=== PATIENT | female | born 1950 | race Caucasian/White ===

== ENCOUNTER 2024-02-09 12:32 | Inpatient (IN) ==
--- NOTE | 2024-02-09 13:21 | ED Physician Documentation ---
History of Present Illness Stated complaint Stated Complaint: Head/Neck PX Chief complaint Chief Complaint: Neuro Additonal information Additional information: 74-year-old female with history of high cholesterol, depression, appendectomy presents with altered mental status, head and neck pain. Per chart review, she was diagnosed with COVID in January, starting Paxlovid on January 30. She presented to the ER on January 30 with an episode of altered mental status. She had CT head, CT head and neck, then return to baseline. It was felt she might be having a response to COVID, as she had a similar prior episode of confusion with COVID in the past per note. She was discharged in good condition. She and her family bedside state that her COVID symptoms resolved, then in the last 3 days, she developed mild intermittent confusion with progressive neck pain. Pain is worse with flexion. 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 She denies photophobia, fevers or chills, vomiting, focal numbness or weakness, visual or hearing changes, chest or back or abdominal flank pain, shortness of breath, urinary symptoms, rash, trauma, lightheadedness or syncope, or other changes. She is not anticoagulated. She denies prior low back surgeries, with family bedside corroborating. She does note however history of difficult lumbar punctures in the past, likely requiring IR guidance per her history in [place]. She took 2 doses of acyclovir yseterday and 1 this morning at home; she does not regularly take this but states she was told to in past if she developed symptoms like her current neck discomfort. Review of Systems ROS Constitutional: no fever, no chills Eyes: no visual disturbance, no discharge Ears, Nose, Mouth, Throat: no rhinorrhea, no sore throat Cardiovascular: no chest pain, no palpitations Respiratory: no cough, no shortness of breath Gastrointestinal: no abdominal pain, no vomiting, no diarrhea Genitourinary: no dysuria, no hematuria Musculoskeletal: no back pain, no neck stiffness Skin: no rash, no wound Neurological: no focal weakness, no focal numbness Meds/Allgy Home Medications Ambulatory Orders Medication Instructions Recorded Confirmed albuterol sulfate 90 mcg/actuation 1 - 2 puff IH Q4H PRN Cough ##1 07/06/15 02/09/24 aerosol inhaler (Proventil HFA) fluticasone furoate 200 1 inh inhalation DAILY 07/06/15 02/09/24 mcg-vilanterol 25 mcg/dose inhalation powder (Breo Ellipta) atorvastatin 80 mg tablet 80 mg PO DAILY 02/09/24 02/09/24 duloxetine 60 mg capsule,delayed 60 mg PO DAILY 02/09/24 02/09/24 release gabapentin 300 mg capsule 300 mg PO TID 02/09/24 02/09/24 montelukast 10 mg tablet 10 mg PO QPM 02/09/24 02/09/24 quetiapine 100 mg tablet 150 mg PO DAILY 02/09/24 02/09/24 Allergies Allergies Allergy/AdvReac Type Severity Reaction Status Date / Time baclofen Allergy Intermediate Unknown Verified 02/09/24 12:41 [facility] Medical History Medical History (Updated 02/09/24 @ 17:44 by FAUSTO Hartley) History of asthma Rheumatoid arthritis Hyperlipemia Surgical History Surgical History (Updated 02/09/24 @ 12:50 by Scooby Finley RN) History of carpal tunnel release Family History Family History (Updated 02/09/24 @ 18:02 by FAUSTO Hartley) Mother Leukemia Father Leukemia Social History Social History (Updated 02/09/24 @ 12:50 by Scooby Finley RN) Smoking Status: Never smoker Second hand tobacco smoke exposure: No Do you dip or chew tobacco?: No Do you vape?: No Living arrangement: At home Living Condition: With family and Other (Visiting here from [place] for an indefinite duration.) Relationship: Do you feel safe in your home environment?: Yes Suffered physical, verbal, emotional, or financial abuse?: No History of Abuse: No ETOH Use: None Substance Use: denies use POLST Patient has POLST: No Exam Exam Const: no acute distress, non toxic appearing; calm, conversant, pleasant though mildly confused Eyes: PERRLA, EOMI, no photophobia ENT: mucous membranes moist Neck: +pain and stiffness with flexion; mildly tender along C-spine; no other tenderness; no lesions or thrills Resp: no respiratory distress, clear to auscultation bilaterally Card: regular rate and rhythm, no murmurs Abd: non tender diffusely, no rigidity or rebound or guarding Back: no T or L spine tenderness, no CVA tenderness bilaterally Extrem: no deformities, no swelling bilateral lower extremities, 2+ distal pulses all extremities Neuro: ANOx3/4. e merchant 2-12 intact. No rotatory or vertical nystagmus. Normal tone all extremities. Sensation intact to light touch all extremities. No ankle clonus bilaterally. 5/5 motor strength all extremities. Normal coordination. No dysarthria. No neglect. Grossly normal cognition. Skin: no rash, warm and dry Results Vitals Vitals: Vital Signs - 24 hr 02/09/24 12:43 02/09/24 13:52 02/09/24 14:33 Temperature 37.2 C Temperature Source Oral Pulse Rate 123 H 106 H 97 H Respiratory Rate 18 16 18 Blood Pressure 118/58 L 142/66 H 156/73 H O2 Saturation 93 93 93 O2 Source Room air Room air Room air Pain Intensity 8 7 6 02/09/24 15:10 02/09/24 15:52 02/09/24 15:53 Temperature Temperature Source Pulse Rate 96 H Respiratory Rate 17 Blood Pressure 169/89 H O2 Saturation 94 O2 Source Room air Pain Intensity 8 8 8 02/09/24 16:57 02/09/24 16:58 02/09/24 17:07 Temperature Temperature Source Pulse Rate 90 91 H Respiratory Rate 18 18 Blood Pressure 177/93 H O2 Saturation 96 96 O2 Source Room air Room air Room air Pain Intensity 4 3 3 Oxygen O2 Source Room air Labs Labs: Microbiology 02/09/24 14:15 CSF Culture - Preliminary Cerebral Spinal Fluid Laboratory Tests 02/09/24 02/09/24 02/09/24 13:28 14:15 17:00 WBC 10.5 RBC 4.05 L Hgb 12.5 Hct 39.0 MCV 96.3 MCH 30.9 MCHC 32.1 RDW 12.2 Plt Count 228 MPV 10.1 Neut # (Auto) 6.9 H Lymph # (Auto) 2.1 [place] # (Auto) 1.2 H Eos # (Auto) 0.3 Baso # (Auto) 0.0 Absolute Nucleated RBC 0.00 Nucleated RBC % 0.0 PT 11.4 INR 1.0 Sodium 136 Potassium 4.2 Chloride 101 Carbon Dioxide 28 Anion Gap 7.0 BUN 24 H Creatinine 1.4 H Estimated GFR (MDRD) 37 L Glucose 159 H Calcium 10.2 Total Bilirubin 0.9 AST 28 ALT 32 Alkaline Phosphatase 50 Total Protein 7.4 Albumin 4.5 Globulin 2.9 Albumin/Globulin Ratio 1.6 Urine Color YELLOW Urine Clarity CLEAR Urine pH 5.5 Ur Specific [place] 1.015 Urine Protein NEGATIVE Urine Glucose (UA) NEGATIVE Urine Ketones NEGATIVE Urine Occult Blood NEGATIVE Urine Nitrite NEGATIVE Urine Bilirubin NEGATIVE Urine Urobilinogen 0.2 (NORMAL) Ur Leukocyte Esterase NEGATIVE Urine RBC None Seen Urine WBC 0-3 Ur Squamous Epith Cells FEW Squamous Urine Bacteria None Seen Urine Culture Comments NOT INDICATED CSF Color COLORLESS CSF Clarity CLEAR Xanthrochromic ABSENT CSF WBC 1088 H* CSF RBC 3 H CSF Cell Count Tube # CSF TUBE# 3 CSF Neutrophils 2 CSF Lymphocytes 87 H CSF Monocytes 11 L CSF Glucose 64 CSF Total Protein 163 H Salicylates < 1.5 Urine Opiates Screen POSITIVE H Ur Buprenorphine Scrn NEGATIVE Ur Oxycodone Screen POSITIVE H Urine Methadone Screen NEGATIVE Acetaminophen 19.5 Ur Barbiturates Screen NEGATIVE Ur Tricyclics Screen POSITIVE H Ur Phencyclidine Scrn NEGATIVE Ur Amphetamine Screen NEGATIVE U Methamphetamines Scrn NEGATIVE U Benzodiazepines Scrn NEGATIVE Urine Cocaine Screen NEGATIVE U Cannabinoids Screen NEGATIVE Ur Drug Screen Comment CUTOFF CONC BELOW: Ethyl Alcohol < 10.0 PD Medical Decision Making ED course ED course: This patient presents with neck pain in the setting of recent COVID and 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 She is neurovascularly intact, though mildly confused, currently afebrile. In this setting, I have considered broad differential including but not limited to meningitis, encephalitis, including from HSV, torticollis, sprain, strain, tension headache, migraine, vascular dissection, electrolyte derangements, among others. I am pursuing broad altered mental status workup with EKG, labs, CT head, chest x-ray, CTA head and neck, then anticipate attempt at lumbar puncture. I have consented family at bedside for LP. Note patient on isolation. Staff aware. Note also patient with no focal neurologic deficits and is afebrile, not septic appearing. I am holding antibiotics/antivirals pending LP given stability to optimize CSF results. Labs: CBC reassuring, no leukocytosis or anemia or thrombocyoptenia; CMP with possible HUMBERTO, with Cr 1.4, previously 1.0 in January; BUN mildly elevated. Fluids ordered. LFTs WNL. ASA, APAP, ethanol negative. INR WNL. Radiology: I agree with radiology reads of imaging on my independent review of i maging. CXR: "FINDINGS: Surgical changes and devices: None. Lungs and pleura: No pleural effusions or pneumothorax. Lungs are clear. Mediastinum: Mediastinal contours appear normal. Heart size is enlarged. Bones and chest wall: No suspicious bony lesions. Overlying soft tissues appear unremarkable. IMPRESSION: No acute cardiopulmonary process. Reviewed by: Sky Dash MD on 02/09/2024 1:54 PM PDT" CT: "FINDINGS: Image quality: Excellent. CSF spaces: Basal cisterns are patent. No extra-axial fluid collections. Ventricles are normal in size and shape. Brain: No midline shift. No intracranial masses or hemorrhage. Huizar-white matter interface is normal. Age-appropriate brain parenchymal volume loss and chronic small vessel ischemic change can be seen. Skull and face: Calvarium and visualized facial bones are intact, without suspicious lesions. Hyperostosis frontalis is incidentally noted, which is not frankly abnormal for a female patient of this age. Sinuses: Visualized sinuses and mastoids are clear. IMPRESSION: No acute intracranial pathology. No intracranial hemorrhage is seen. If there is strong clinical concern for a stroke, please consider a dedicated brain MRI for further evaluation (assuming that there is no contraindication to MRI). Reviewed by: Naresh Marquis MD on 02/09/2024 12:56 PM AKDT" Note added HIV given the potential for recurring HSV meningitis, though no clear HIV risk factors, no clear immunosuppression. This is a send out that will need follow up. - LP: LP perforemd as below. CSF glucose, protein, gram stain, culture, HSV ordered. Procedure Note: Lumbar Puncture Patient consented via PARQ. Timeout performed. The patient was positioned in the left lateral decubitus position. Landmarks were identified. Sterile technique used. The area was prepped and draped in the usual sterile fashion. Anesthesia was obtained with 3 ml of 1% lidocaine withoue epi. Chlorhexidine applied. An 18g 3.5" spinal needle was inserted at the L4-5 level. Return was clear fluid without difficulty. Fluid sent to the laboratory. A dressing was placed over the site. - CSF results: I received a call that there is a substantial elevated white blood cell count in CSF, above 1000. Patient stable. I am initiating IV acyclovir 800mg q8hrs; note patient took PO acyclovir at home as previously discussed. Glucose WNL. Protein elevated to 163. WBC retruned at 1088 (lymphocytic predominance), with minimal RBCs at 3. No clear organisms on stain, arguing against bacterial etiology; culture sent. CTA: "FINDINGS: Image quality: Diagnostic. HEAD CT: No significant change from same day head CT. HEAD CT ANGIOGRAPHY: Anterior circulation: Intracranial internal carotid arteries are normal in size and flow. The flow within the paired anterior cerebral arteries is normal and symmetric. The flow within the middle cerebral arteries is normal and symmetric. The anterior communicating artery is seen. No aneurysms are seen. Posterior circulation: Visualized portions of the vertebral arteries demonstrate normal caliber, and join to form a normal appearing basilar artery. Flow within the posterior cerebral arteries is normal and symmetric. No aneurysms are seen. NECK CT ANGIOGRAPHY: Carotid system: The great vessels demonstrate a conventional anatomy as they arise from the aortic arch. The origins of the common carotid arteries appear patent. The common carotid arteries demonstrate normal caliber and courses. The bifurcation regions are both widely patent. The internal carotid arteries demonstrate normal calibers and courses. Posterior circulation: The origins of the vertebral arteries both appear widely patent. The more superior extracranial portions of both vertebral arteries also demonstrate normal courses and calibers. They join to form a normal appearing basilar artery. Soft tissues: Visualized neck soft tissues demonstrate no suspicious abnormalities. Bones: No suspicious bony lesions. Visualized cervical spine appears normally aligned. IMPRESSION: No significant intracranial arterial abnormality is seen. No significant abnormality is seen within the arteries of the neck. The estimate of stenosis included in the report of the imaging study was calculated using the NASCET method Reviewed by: Sky Dash MD on 02/09/2024 3:16 PM PDT" EKG NSR without acute ischemia or immediately concerning interval prolongation Pharmacy adjusting acyclovir dosing based on weight and renal function. I spoke with Oral at roughly 1525. Patient stable. Ordering oxycodone, tylenol for head and neck pain, along with bcx x2. Hospitalist consult: I spoke with Dr. Paige at 1640; she reviewed case with me and kindly accepts for admission. Note UA pending at this time. Patient and family aware of plan. Patient has remained stable, neurovascularly intact. Discharge Plan Discharge Patient Disposition: [facility] DC/Xfer Condition: Stable Clinical Impression: Meningitis
[2024-02-09 13:35] LABS: BASOPHILS % (AUTO) 0.4 %; EOSINOPHILS # (AUTO) 0.3 10^3/uL (0.0-0.7); EOSINOPHILS % (AUTO) 2.7 %; HGB - HEMOGLOBIN 12.5 g/dL (12.0-16.0); LYMPHOCYTES # (AUTO) 2.1 10^3/uL (1.5-3.5); LYMPHOCYTES % (AUTO) 19.8 %; MEAN CORPUSCULAR HEMOGLOBIN 30.9 pg (27.0-31.0); MEAN CORPUSCULAR HGB CONC 32.1 g/dL (32.0-36.0); MEAN CORPUSCULAR VOLUME 96.3 fL (81.0-99.0); MEAN PLATELET VOLUME 10.1 fL (7.9-10.8); MONOCYTES # (AUTO) 1.2 10^3/uL (0.0-1.0); MONOCYTES % (AUTO) 11.1 %; NEUTROPHILS # (AUTO) 6.9 10^3/uL (1.5-6.6); NEUTROPHILS % (AUTO) 65.5 %; PLT - PLATELET COUNT 228 10^3/uL (130-450); RED BLOOD COUNT 4.05 10^6/uL (4.20-5.40); RED CELL DISTRIBUTION WIDTH 12.2 % (12.0-15.0); WHITE BLOOD COUNT 10.5 x10^3/uL (4.8-10.8)
[2024-02-09 13:44] LABS: PT - PROTHROMBIN TIME 11.4 secs (9.9-12.6)
[2024-02-09 13:49] LABS: ACETAMINOPHEN 19.5 ug/mL; ALBUMIN 4.5 g/dL (3.2-5.5); ALBUMIN/GLOBULIN RATIO 1.6 (1.0-2.2); ALKALINE PHOSPHATASE 50 IU/L (42-121); ALT ALANINE AMINOTRANSFERASE 32 IU/L (10-60); AST ASPARTATE AMINOTRANSFERASE 28 IU/L (10-42); BILIRUBIN,TOTAL 0.9 mg/dL (0.2-1.0); BUN - BLOOD UREA NITROGEN 24 mg/dL (6-20); CALCIUM 10.2 mg/dL (8.5-10.3); CARBON DIOXIDE - CO2 28 mmol/L (21-32); CHLORIDE 101 mmol/L (101-111); CREATININE 1.4 mg/dL (0.6-1.3); ETOH - ETHANOL < 10.0 mg/dL; GFR - MDRD 37 (>89); GLUCOSE 159 mg/dL (74-104); POTASSIUM 4.2 mmol/L (3.5-4.5); SODIUM 136 mmol/L (135-145); TOTAL PROTEIN 7.4 g/dL (6.4-8.9)
[2024-02-09 13:50] LABS: SALICYLATE < 1.5 mg/dL
[2024-02-09] MEDS: SODIUM CHLORIDE 0.9% 1,000 ML IV STA (13:51)
--- NOTE | 2024-02-09 13:55 | XRAY Report ---
PROCEDURE: XR Chest 1V INDICATIONS: AMS TECHNIQUE: One view of the chest was acquired. COMPARISON: 01/31/2024 FINDINGS: Surgical changes and devices: None. Lungs and pleura: No pleural effusions or pneumothorax. Lungs are clear. Mediastinum: Mediastinal contours appear normal. Heart size is enlarged. Bones and chest wall: No suspicious bony lesions. Overlying soft tissues appear unremarkable. IMPRESSION: No acute cardiopulmonary process. Reviewed by: Sky Dash MD on 02/09/2024 1:54 PM PDT Approved by: Sky Dash MD on 02/09/2024 1:54 PM PDT Station ID: [id number]
--- NOTE | 2024-02-09 13:57 | CT Report ---
PROCEDURE: CT Head WO INDICATIONS: AMS TECHNIQUE: Noncontrast 4.5 mm thick angled axial sections acquired from the foramen magnum to the vertex. For r adiation dose reduction, the following was used: automated exposure control, adjustment of mA and/or kV according to patient size. COMPARISON: 01/31/2024 FINDINGS: Image quality: Excellent. CSF spaces: Basal cisterns are patent. No extra-axial fluid collections. Ventricles are normal in size and shape. Brain: No midline shift. No intracranial masses or hemorrhage. Huizar-white matter interface is norm al. Age-appropriate brain parenchymal volume loss and chronic small vessel ischemic change can be se en. Skull and face: Calvarium and visualized facial bones are intact, without suspicious lesions. Hyper ostosis frontalis is incidentally noted, which is not frankly abnormal for a female patient of this a ge. Sinuses: Visualized sinuses and mastoids are clear. IMPRESSION: No acute intracranial pathology. No intracranial hemorrhage is seen. If there is strong clinical concern for a stroke, please consider a dedicated brain MRI for further e valuation (assuming that there is no contraindication to MRI). Reviewed by: Naresh Marquis MD on 02/09/2024 12:56 PM TENA Approved by: Naresh Marquis MD on 02/09/2024 12:56 PM TENA Station ID: [id number]
[2024-02-09] MEDS ORDERED: iohexoL-300 100 ML VIAL ONE (14:40)
[2024-02-09 14:50] LABS: TOTAL PROTEIN,CSF 163 mg/dL (15-60)
[2024-02-09 14:56] LABS: CSF - GLUCOSE 64 mg/dL (45-70)
[2024-02-09 15:09] LABS: CLARITY,CSF CLEAR (CLEAR); COLOR,CSF COLORLESS (COLORLESS); CSF TUBE # CSF TUBE# 3; CSF XANTHOCHROMIA ABSENT (ABSENT); RED BLOOD CELL,CSF 3 /mm^3 (0-1)
[2024-02-09 15:11] LABS: WHITE BLOOD CELL,CSF 1088 /mm^3 (0-5)
[2024-02-09 15:15] LABS: LYMPHOCYTES,CSF 87 % (40-80); MONOCYTES,CSF 11 % (15-45); NEUTROPHILS,CSF 2 % (0-6)
--- NOTE | 2024-02-09 15:18 | CT Report ---
PROCEDURE: CT Angio Head/Neck INDICATIONS: neck pain, confusion TECHNIQUE: After the administration of intravenous contrast, 1 mm thick sections acquired from the aortic arch t hrough the [place] of [place]. 3-dimensional bxzmnwe-aljylpnmd-fgnoyutggw (MIP) and/or volume renderin g reformats were acquired of the central intracranial vasculature and neck separately. For radiation dose reduction, the following was used: automated exposure control, adjustment of mA and/or kV acco rding to patient size. CONTRAST: Omni 300 80ml COMPARISON: Same day head CT. FINDINGS: Image quality: Diagnostic. HEAD CT: No significant change from same day head CT. HEAD CT ANGIOGRAPHY: Anterior circulation: Intracranial internal carotid arteries are normal in size and flow. The flow within the paired anterior cerebral arteries is normal and symmetric. The flow within the middle cer ebral arteries is normal and symmetric. The anterior communicating artery is seen. No aneurysms are seen. Posterior circulation: Visualized portions of the vertebral arteries demonstrate normal caliber, and join to form a normal appearing basilar artery. Flow within the posterior cerebral arteries is norm al and symmetric. No aneurysms are seen. NECK CT ANGIOGRAPHY: Carotid system: The great vessels demonstrate a conventional anatomy as they arise from the aortic a rch. The origins of the common carotid arteries appear patent. The common carotid arteries demonstr ate normal caliber and courses. The bifurcation regions are both widely patent. The internal caroti d arteries demonstrate normal calibers and courses. Posterior circulation: The origins of the vertebral arteries both appear widely patent. The more bowen perior extracranial portions of both vertebral arteries also demonstrate normal courses and calibers. They join to form a normal appearing basilar artery. Soft tissues: Visualized neck soft tissues demonstrate no suspicious abnormalities. Bones: No suspicious bony lesions. Visualized cervical spine appears normally aligned. IMPRESSION: No significant intracranial arterial abnormality is seen. No significant abnormality is seen within the arteries of the neck. The estimate of stenosis included in the report of the imaging study was calculated using the NASCET method Reviewed by: Sky Dash MD on 02/09/2024 3:16 PM PDT Approved by: Sky Dash MD on 02/09/2024 3:16 PM PDT Station ID: [id number]
[2024-02-09] MEDS: oxyCODONE 5 MG TABLET PO STA (15:52)
[2024-02-09] MEDS: ACYCLOVIR IV SCH (15:53)
[2024-02-09] MEDS: SODIUM CHLORIDE 0.9% IV SCH (15:53)
[2024-02-09] MEDS: ACETAMINOPHEN 500 MG TABLET PO STA (15:53)
[2024-02-09 17:13] LABS: BILIRUBIN,URINE NEGATIVE (NEGATIVE); GLUCOSE, URINE (UA) NEGATIVE (NEGATIVE); KETONES,URINE (UA) NEGATIVE (NEGATIVE); LEUKOCYTE ESTERASE, URINE NEGATIVE (NEGATIVE); NITRITE,URINE NEGATIVE (NEGATIVE); OCCULT BLOOD,URINE NEGATIVE (NEGATIVE); PH,URINE 5.5 PH (5.0-7.5); PROTEIN,URINE NEGATIVE (NEGATIVE); UROBILINOGEN,URINE 0.2 (NORMAL) E.U./dL (NORMAL)
[2024-02-09 17:17] LABS: CLARITY,URINE CLEAR (CLEAR)
[2024-02-09 17:27] LABS: BACTERIA,URINE None Seen /HPF (None Seen); RBC,URINE None Seen /HPF (0-5); SQUAMOUS EPITHELIAL CELL,UR FEW Squamous (<= Few); WBC,URINE 0-3 /HPF (0-5)
[2024-02-09 17:30] LABS: AMPHETAMINE SCREEN,URINE NEGATIVE (NEGATIVE); BENZODIAZEPINES SCREEN, URINE NEGATIVE (NEGATIVE); COCAINE SCREEN URINE NEGATIVE (NEGATIVE); METHAMPHETAMINES SCREEN, URINE NEGATIVE (NEGATIVE); OPIATE SCREEN, URINE POSITIVE (NEGATIVE); THC CANNABINOID SCREEN, URINE NEGATIVE (NEGATIVE); TRICYCLIC ANTIDEPRESSANT,URINE POSITIVE (NEGATIVE)
[2024-02-09 17:31] LABS: BARBITURATE SCREEN,UR NEGATIVE (NEGATIVE); BUPRENORPHINE SCREEN, URINE NEGATIVE (NEGATIVE); METHADONE SCREEN, URINE NEGATIVE (NEGATIVE); OXYCODONE SCREEN, URINE POSITIVE (NEGATIVE)
[2024-02-09] MEDS: iohexoL-300 100 ML VIAL IVP ONE (17:31)
[2024-02-09] MEDS ORDERED: ONDANSETRON 4 MG/2 ML VIAL IVP PRN (17:46)
[2024-02-09] MEDS ORDERED: ONDANSETRON ODT 4 MG TABLET TL PRN (17:46)
--- NOTE | 2024-02-09 17:46 | HISTORY & PHYSICAL EXAMINATION ---
Chief Complaint Chief Complaint Chief Complaint: headache History of Present Illness Admitted From Admitted From:: ED History Obtained From Records Reviewed: ED provider documentation History obtained from: Patient and sister at bedside. History of Present Illness HPI Comment/Other: 74-year-old female who presents to the emergency department complaining of a headache and mild confusion for 3 days duration. She has a history of asthma, rheumatoid arthritis and hyperlipidemia. She is also previously had viral meningitis. She had her COVID vaccination on January 26. Then became symptomatic with COVID on the and had a positive antigen test. She received Paxlovid treatment which she completed and then had a negative antigen test on February 04. She had been feeling better for several days but then began to have the above listed symptoms 3 days ago. She has also been feeling hot but is not had a fever. She has a past medical history of asthma rheumatoid arthritis and hyperlipidemia. She sees Starr Manrique at [facility]. She does not have any residual symptomatology from her COVID aside from exhaustion headache and neck ache. 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 She does have a history of shingles she has had the shingles vaccine she also had chickenpox as a child. Several weeks ago she had a bullous lesion on her left second toe which then crusted over and is in the process of healing currently. The toe also became red and swollen at the time of the lesion. It was not otherwise treated. Meds/Allgy Home Medications Ambulatory Orders Medication Instructions Recorded Confirmed albuterol sulfate 90 mcg/actuation 1 - 2 puff IH Q4H PRN Cough ##1 07/06/15 02/09/24 aerosol inhaler (Proventil HFA) fluticasone furoate 200 1 inh inhalation DAILY 07/06/15 02/09/24 mcg-vilanterol 25 mcg/dose inhalation powder (Breo Ellipta) atorvastatin 80 mg tablet 80 mg PO DAILY 02/09/24 02/09/24 duloxetine 60 mg capsule,delayed 60 mg PO DAILY 02/09/24 02/09/24 release gabapentin 300 mg capsule 300 mg PO TID 02/09/24 02/09/24 montelukast 10 mg tablet 10 mg PO QPM 02/09/24 02/09/24 quetiapine 100 mg tablet 150 mg PO DAILY 02/09/24 02/09/24 Allergies Allergies Allergy/AdvReac Type Severity Reaction Status Date / Time baclofen Allergy Intermediate Unknown Verified 02/09/24 12:41 [facility] Medical History Medical History (Updated 02/09/24 @ 17:44 by FAUSTO Hartley) History of asthma Rheumatoid arthritis Hyperlipemia Surgical History Surgical History (Updated 02/09/24 @ 12:50 by Scooby Finley RN) History of carpal tunnel release Family History Family History (Updated 02/09/24 @ 18:02 by FAUSTO Hartley) Mother Leukemia Father Leukemia Social History Social History (Updated 02/09/24 @ 12:50 by Scooby Finley RN) Smoking Status: Never smoker Second hand tobacco smoke exposure: No Do you dip or chew tobacco?: No Do you vape?: No Living arrangement: At home Living Condition: With family and Other (Visiting here from [place] for an indefinite duration.) Relationship: Do you feel safe in your home environment?: Yes Suffered physical, verbal, emotional, or financial abuse?: No History of Abuse: No ETOH Use: None Substance Use: denies use POLST Patient has POLST: No Medical History (Updated 02/09/24 @ 17:44 by FAUSTO Hartley) History of asthma Z87.09 - Personal history of other diseases of the respiratory system (ICD- 10) Rheumatoid arthritis M06.9 - Rheumatoid arthritis, unspecified (ICD-10) Hyperlipemia E78.5 - Hyperlipidemia, unspecified (ICD-10) Surgical History (Updated 02/09/24 @ 12:50 by Scooby Finley RN) History of carpal tunnel release Z98.890 - Other specified postprocedural states (ICD-10) Family History (Updated 02/09/24 @ 18:02 by FAUSTO Hartley) Mother Leukemia Father Leukemia Social History (Updated 02/09/24 @ 12:50 by Scooby Finley RN) Smoking Status: Never smoker Second hand tobacco smoke exposure: No Do you dip or chew tobacco?: No Do you vape?: No Living arrangement: At home Living Condition: With family and Other (Visiting here from [place] for an indefinite duration.) Relationship: Do you feel safe in your home environment?: Yes Suffered physical, verbal, emotional, or financial abuse?: No History of Abuse: No ETOH Use: None Substance Use: denies use Review of Systems Status of ROS: 10 or more systems reviewed and unremarkable except as noted in history and below Constitutional Reports: Fatigue; Denies: Fever Eyes Denies: Blurry vision, Decreased night vision, Light sensitivity or Eye discomfort Ears, nose, mouth, and throat Reports: Neck pain; Denies: Ear pain, Nasal discharge, Nasal congestion, Vertigo or Mouth lesions Cardiovascular Denies: Irregular heart rate, chest pain or shortness of breath with exertion Respiratory Denies: Shortness of breath or Cough Gastrointestinal Denies: Abdominal pain Genitourinary Denies: Painful urination Musculoskeletal Reports: Neck pain Integumentary/Breast Reports: Rash (see HPI regarding left 2nd toe) Neurological Reports: Headache and Confusion (mild); Denies: General weakness, Focal weakness, Weakness in extremities, Abnormal gait, Dizziness, Vertigo or Seizure- like activity Psychiatric Denies: Depression or Anxiety Endocrine Reports: Fatigue Hematologic/Lymphatic Denies: Petechiae or Enlarged lymph nodes Prior Level of Functionality: lives with sister. came here from [facility]. Code status discussion. She prefers to be "full code" Conclusion/Plan Problem List (1) Meningitis: Plan: Acute viral meningitis. Patient has a headache and neck ache for 3 days now. She has a history of HSV meningitis. Her CSF results show elevated white blood cell count with 87% lymphocytes which is elevated. She has a normal amount of glucose in her CSF with elevated protein in her CSF. This is indicative of viral meningitis. She had a CT of the head on admission today which is negative for any intracranial pathology. She had a CTA of the head and neck which is also negative. This was done prior to LP. Patient has been started by the ED on acyclovir IV. This will be continued. She has a headache which is severe. She has been started on Tylenol which is not effective for her headache. We will treat her with IV Dilaudid as needed headache. I anticipate that over the next day or 2 her headache will improve. Additionally she will receive supportive care. She had a PCR test which was positive for COVID on 01/31/2024. She completed a course of Paxlovid for this. Laboratory Tests 02/09/24 14:15 CSF Color COLORLESS CSF Clarity CLEAR Xanthrochromic ABSENT CSF WBC 1088 H* CSF RBC 3 H CSF Neutrophils 2 CSF Lymphocytes 87 H CSF Monocytes 11 L CSF Glucose 64 CSF Total Protein 163 H (2) History of asthma: Plan: She has recovered well from her COVID with regards to her asthma. She denies any residual cough she does have some residual fatigue but hard to tell if that is coming from the COVID or the meningitis. She takes an albuterol inhaler 2 puffs 4 times daily as needed as well as a Breo inhaler once a day. Her lungs are clear on examination today she does not show any evidence of asthma exacerbation. (3) Rheumatoid arthritis: Plan: She is currently off of her TNF garrett called Cimzia. This is due to availability as she has been switching primary care providers moving from [place]. She has been on this for some time. She denies any significant joint pain at this time. Otherwise she is on Cymbalta for both depression and chronic pain. Qualifiers: Rheumatoid arthritis location: unspecified site Rheumatoid factor presence: unspecified presence Qualified Code(s): M06.9 - Rheumatoid arthritis, unspecified (4) Hyperlipemia: Plan: We will continue statin therapy once her medication reconciliation is complete. Qualifiers: Hyperlipidemia type: unspecified Qualified Code(s): E78.5 - Hyperlipidemia, unspecified Lab Results 02/09/24 13:28 02/09/24 13:28 Diagnostic Imaging Results Diagnostic Imaging Results: positive Final report reviewed Diagnostic Imaging Results Comments: CT head negative CTA head and neck negative Core Measures DVT/VTE - Prophylaxis VTE/DVT Device ordered at admit?: Yes VTE/DVT Prophylaxis med ordered at admit?: Yes Exam Constitutional normal general appearance and no apparent distress HENMT normocephalic and head/scalp atraumatic Eyes PERRL, EOMs intact bilaterally, conjunctivae normal and no scleral icterus Neck/C-Spine visual inspection normal and cervical spine nontender Lymph no lymphadenopathy noted Chest inspection of chest normal and palpation of chest normal Respiratory breath sounds equal bilaterally, normal respiratory effort and no wheezes Cardiovascular normal heart rate noted Gastrointestinal abdomen normal to inspection and abdomen soft to palpation Back/Pelvis spine normal to inspection Extremities normal to inspection Neurology no movement abnormality noted, no focal motor deficit noted and no sensory deficits noted chronic left hand numbness d/t carpal tunnel Psychiatry mental status grossly normal, oriented x3, thought process normal, cooperative and affect normal Skin skin color normal crusted lesion at base of nail bed left 2nd toe
[2024-02-09] MEDS: HYDROmorphone 0.5 MG/0.5 ML SYRINGE IVP PRN (18:05)
[2024-02-09] MEDS: SODIUM CHLORIDE FLUSH 0.9% 10 ML SYRINGE IVP SCH (18:05)
[2024-02-09] MEDS: oxyCODONE 5 MG TABLET PO PRN (18:40)
[2024-02-09] MEDS ORDERED: LORazepam 0.5 MG TABLET PO PRN (18:56)
[2024-02-09] MEDS ORDERED: ALBUTEROL NEB 2.5 MG/3 ML INH PRN (19:31)
[2024-02-09] MEDS: ACETAMINOPHEN 325 MG TABLET PO PRN (21:20)
[2024-02-09] MEDS: DULoxetine 60 MG CAPSULE PO SCH (21:40)
[2024-02-09] MEDS: MONTELUKAST 10 MG TABLET PO SCH (21:57)
[2024-02-09] MEDS: QUEtiapine 100 MG TABLET PO SCH (21:58)
[2024-02-09] MEDS: GABAPENTIN 300 MG CAPSULE PO SCH (21:59)
[2024-02-09] MEDS: hydrALAZINE INJ 20 MG/ML VIAL IVP PRN (22:03)
[2024-02-10 03:12] LABS: HIV SCREEN 4TH GENERATION Non Reactive (Non Reactive)
[2024-02-10 06:10] LABS: BASOPHILS # (AUTO) 0.1 10^3/uL (0.0-0.1); BASOPHILS % (AUTO) 0.8 %; EOSINOPHILS # (AUTO) 0.5 10^3/uL (0.0-0.7); EOSINOPHILS % (AUTO) 6.5 %; HCT - HEMATOCRIT 38.6 % (37.0-47.0); HGB - HEMOGLOBIN 12.2 g/dL (12.0-16.0); LYMPHOCYTES # (AUTO) 2.8 10^3/uL (1.5-3.5); LYMPHOCYTES % (AUTO) 38.9 %; MEAN CORPUSCULAR HEMOGLOBIN 30.9 pg (27.0-31.0); MEAN CORPUSCULAR HGB CONC 31.6 g/dL (32.0-36.0); MEAN CORPUSCULAR VOLUME 97.7 fL (81.0-99.0); MEAN PLATELET VOLUME 10.4 fL (7.9-10.8); MONOCYTES # (AUTO) 1.1 10^3/uL (0.0-1.0); MONOCYTES % (AUTO) 15.5 %; NEUTROPHILS # (AUTO) 2.7 10^3/uL (1.5-6.6); NEUTROPHILS % (AUTO) 37.9 %; PLT - PLATELET COUNT 221 10^3/uL (130-450); RED BLOOD COUNT 3.95 10^6/uL (4.20-5.40); RED CELL DISTRIBUTION WIDTH 12.1 % (12.0-15.0); WHITE BLOOD COUNT 7.1 x10^3/uL (4.8-10.8)
[2024-02-10 06:32] LABS: CALCIUM 8.9 mg/dL (8.5-10.3); CREATININE 0.9 mg/dL (0.6-1.3); MAGNESIUM 1.8 mg/dL (1.7-2.3); POTASSIUM 3.4 mmol/L (3.5-4.5)
--- NOTE | 2024-02-10 08:49 | PROVIDER PROGRESS NOTE ---
Subjective Prog Note Date Prog Note Date: 02/10/24 Prog Note Time: 08:48 Subjective Pt reports feeling: Improved Subjective: She feels much better this AM. Still needing meds for headache, but more steady on her feet and thinking is more clear. She has been independent to the bathroom. When I see her this afternoon she notes that she is still requiring medications for headache. About every 4 hours. Her favorite thing to do is work number puzzles and she continues to have a great difficulty in doing this. This is how she knows that her mentation is not at baseline. She continues to be oriented to person place time and her situation. When she had some mental status changes several weeks ago related to her COVID her sister stated that it was very difficult to explain to healthcare providers exactly what was different about Sima it was just that something in her mentation did not seem quite right. This did improve after treatment of her COVID. She was back to baseline prior to the incident that precipitated admission. Current Medications Current Medications Current Medications: Current Medications Generic Name Dose Route Start Last Admin Trade Name Freq PRN Reason Stop Dose Admin Acetaminophen 650 mg 02/09/24 17:46 02/10/24 06:06 Acetaminophen 325 Mg Tablet PO 650 mg Q4HR PRN Administration Pain 1 to 4, or Fever Albuterol 2.5 mg 02/09/24 19:31 Albuterol Neb 2.5 Mg/3 Ml INH RTQ4H PRN Cough Atorvastatin Calcium 80 mg 02/10/24 09:00 Atorvastatin 40 Mg Tablet PO DAILY SHAR Budesonide 0.5 mg 02/10/24 07:00 Budesonide 0.5 Mg/2 Ml Neb INH RTBID SHAR Duloxetine HCl 60 mg 02/09/24 21:00 02/09/24 21:40 Duloxetine 60 Mg Capsule PO 60 mg HS SHAR Administration Enoxaparin Sodium 40 mg 02/10/24 09:00 Enoxaparin 40 Mg/0.4 Ml Syringe SUBQ DAILY SHAR Formoterol Fumarate 20 mcg 02/10/24 07:00 Formoterol Fumarate Neb 20 Mcg/2 Ml INH RTBID SHAR Gabapentin 300 mg 02/09/24 22:00 02/10/24 05:01 Gabapentin 300 Mg Capsule PO 300 mg TID SHAR Administration Hydralazine HCl 10 mg 02/09/24 17:53 02/09/24 22:03 Hydralazine Inj 20 Mg/Ml Vial IVP 10 mg Q4HR PRN Administration SBP> or= 160 OR DBP> or= 110 Hydromorphone HCl 0.5 mg 02/09/24 17:46 02/10/24 05:01 Hydromorphone 0.5 Mg/0.5 Ml Syringe IVP 0.5 mg Q2H PRN Administration Severe Pain (Level 7-10) Acyclovir 650 mg/ Sodium 513 mls @ 500 mls/hr 02/09/24 16:00 02/10/24 06:00 Chloride IV Infused Q12H SHAR Infusion Lorazepam 0.5 mg 02/09/24 18:56 Lorazepam 0.5 Mg Tablet PO Q6H PRN Anxiety Montelukast Sodium 10 mg 02/09/24 21:00 02/09/24 21:57 Montelukast 10 Mg Tablet PO 10 mg QPM SHAR Administration Ondansetron HCl 4 mg 02/09/24 17:46 Ondansetron Odt 4 Mg Tablet TL Q6HR PRN Nausea / Vomiting Ondansetron HCl 4 mg 02/09/24 17:46 Ondansetron 4 Mg/2 Ml Vial IVP Q6HR PRN Nausea / Vomiting Oxycodone HCl 5 mg 02/09/24 17:46 02/10/24 06:06 Oxycodone 5 Mg Tablet PO 5 mg Q4HR PRN Administration Pain 5 to 7 Quetiapine Fumarate 150 mg 02/09/24 21:00 02/09/24 21:58 Quetiapine 100 Mg Tablet PO 150 mg HS SHAR Administration Sodium Chloride 10 ml 02/09/24 17:46 Sodium Chloride Flush 0.9% 10 Ml Syringe IVP PRN PRN NEEDED PER PROVIDER ORDERS Sodium Chloride 10 ml 02/09/24 17:46 02/10/24 04:51 Sodium Chloride Flush 0.9% 10 Ml Syringe IVP 10 ml 0100,0900,1700 SHAR Administration Objective Vital Signs/Intake & Output Reviewed Vital Signs: Yes Vital Signs: Vital Signs x48h Temp Pulse Resp BP Pulse Ox 02/10/24 08:12 36.8 C 84 18 145/83 H 94 02/10/24 04:48 36.4 C L 81 18 148/85 H 95 Intake & Output: Intake & Output 02/08/24 02/09/24 02/10/24 02/11/24 05:59 05:59 05:59 05:59 Intake Total 2099 / 2099 513 / 513 Output Total 500 / 500 Balance 1599 / 1599 513 / 513 Weight (kg) 81.647 kg Objective General Appearance: positive No acute distress and Alert Eyes Bilateral: positive Normal inspection, PERRL and Conjunctivae nml ENT: positive ENT inspection nml Neck: positive Nml inspection, Stiff neck (Continues to have some mild stiffness of her neck and pain at the base of her neck when she flexes her cervical spine.) and Other Respiratory: positive Chest non-tender, No respiratory distress and Breath sounds nml Cardiovascular: positive Regular rate & rhythm Abdomen: positive Non-tender and No distention Back: positive Nml inspection Skin: positive Color nml Extremities: positive Non-tender and No pedal edema Neurologic/Psychiatric: positive Oriented x3 and Mood/affect nml Lab Results 02/10/24 06:00 02/10/24 06:00 Other Labs: Lab Results x24hrs 02/10/24 02/09/24 02/09/24 Range/Units 06:00 17:00 14:15 WBC 7.1 (4.8-10.8) x10^3/uL RBC 3.95 L (4.20-5.40) 10^6/uL Hgb 12.2 (12.0-16.0) g/dL Hct 38.6 (37.0-47.0) % MCV 97.7 (81.0-99.0) fL MCH 30.9 (27.0-31.0) pg MCHC 31.6 L (32.0-36.0) g/dL RDW 12.1 (12.0-15.0) % Plt Count 221 (130-450) 10^3/uL MPV 10.4 (7.9-10.8) fL Neut # (Auto) 2.7 (1.5-6.6) 10^3/uL Lymph # (Auto) 2.8 (1.5-3.5) 10^3/uL [place] # (Auto) 1.1 H (0.0-1.0) 10^3/uL Eos # (Auto) 0.5 (0.0-0.7) 10^3/uL Baso # (Auto) 0.1 (0.0-0.1) 10^3/uL Absolute Nucleated RBC 0.00 x10^3/uL Nucleated RBC % 0.0 /100WBC PT (9.9-12.6) secs INR (0.8-1.2) Sodium 137 (135-145) mmol/L Potassium 3.4 L (3.5-4.5) mmol/L Chloride 104 (101-111) mmol/L Carbon Dioxide 28 (21-32) mmol/L Anion Gap 5.0 L (6-13) BUN 15 (6-20) mg/dL Creatinine 0.9 (0.6-1.3) mg/dL Estimated GFR (MDRD) 61 L (>89) Glucose 94 (74-104) mg/dL Calcium 8.9 (8.5-10.3) mg/dL Magnesium 1.8 (1.7-2.3) mg/dL Total Bilirubin (0.2-1.0) mg/dL AST (10-42) IU/L ALT (10-60) IU/L Alkaline Phosphatase (42-121) IU/L Total Protein (6.4-8.9) g/dL Albumin (3.2-5.5) g/dL Globulin (2.1-4.2) g/dL Albumin/Globulin Ratio (1.0-2.2) Urine Color YELLOW Urine Clarity CLEAR (CLEAR) Urine pH 5.5 (5.0-7.5) PH Ur Specific [place] 1.015 (1.002-1.030) Urine Protein NEGATIVE (NEGATIVE) mg/dL Urine Glucose (UA) NEGATIVE (NEGATIVE) mg/dL Urine Ketones NEGATIVE (NEGATIVE) mg/dL Urine Occult Blood NEGATIVE (NEGATIVE) Urine Nitrite NEGATIVE (NEGATIVE) Urine Bilirubin NEGATIVE (NEGATIVE) Urine Urobilinogen 0.2 (NORMAL) (NORMAL) E.U./dL Ur Leukocyte Esterase NEGATIVE (NEGATIVE) Urine RBC None Seen (0-5) /HPF Urine WBC 0-3 (0-5) /HPF Ur Squamous Epith Cells FEW Squamous (<= Few) Urine Bacteria None Seen (None Seen) /HPF Urine Culture Comments NOT INDICATED CSF Color COLORLESS (COLORLESS) CSF Clarity CLEAR (CLEAR) Xanthrochromic ABSENT (ABSENT) CSF WBC 1088 H* (0-5) /mm^3 CSF RBC 3 H (0-1) /mm^3 CSF Cell Count Tube # CSF TUBE# 3 CSF Neutrophils 2 (0-6) % CSF Lymphocytes 87 H (40-80) % CSF Monocytes 11 L (15-45) % CSF Glucose 64 (45-70) mg/dL CSF Total Protein 163 H (15-60) mg/dL Salicylates mg/dL Urine Opiates Screen POSITIVE H (NEGATIVE) Ur Buprenorphine Scrn NEGATIVE (NEGATIVE) Ur Oxycodone Screen POSITIVE H (NEGATIVE) Urine Methadone Screen NEGATIVE (NEGATIVE) Acetaminophen ug/mL Ur Barbiturates Screen NEGATIVE (NEGATIVE) Ur Tricyclics Screen POSITIVE H (NEGATIVE) Ur Phencyclidine Scrn NEGATIVE (NEGATIVE) Ur Amphetamine Screen NEGATIVE (NEGATIVE) U Methamphetamines Scrn NEGATIVE (NEGATIVE) U Benzodiazepines Scrn NEGATIVE (NEGATIVE) Urine Cocaine Screen NEGATIVE (NEGATIVE) U Cannabinoids Screen NEGATIVE (NEGATIVE) Ur Drug Screen Comment CUTOFF CONC BELOW: Ethyl Alcohol mg/dL HIV 1&2 Ab/P24 Ag 4thGn (Non Reactive) 02/09/24 Range/Units 13:28 WBC 10.5 (4.8-10.8) x10^3/uL RBC 4.05 L (4.20-5.40) 10^6/uL Hgb 12.5 (12.0-16.0) g/dL Hct 39.0 (37.0-47.0) % MCV 96.3 (81.0-99.0) fL MCH 30.9 (27.0-31.0) pg MCHC 32.1 (32.0-36.0) g/dL RDW 12.2 (12.0-15.0) % Plt Count 228 (130-450) 10^3/uL MPV 10.1 (7.9-10.8) fL Neut # (Auto) 6.9 H (1.5-6.6) 10^3/uL Lymph # (Auto) 2.1 (1.5-3.5) 10^3/uL [place] # (Auto) 1.2 H (0.0-1.0) 10^3/uL Eos # (Auto) 0.3 (0.0-0.7) 10^3/uL Baso # (Auto) 0.0 (0.0-0.1) 10^3/uL Absolute Nucleated RBC 0.00 x10^3/uL Nucleated RBC % 0.0 /100WBC PT 11.4 (9.9-12.6) secs INR 1.0 (0.8-1.2) Sodium 136 (135-145) mmol/L Potassium 4.2 (3.5-4.5) mmol/L Chloride 101 (101-111) mmol/L Carbon Dioxide 28 (21-32) mmol/L Anion Gap 7.0 (6-13) BUN 24 H (6-20) mg/dL Creatinine 1.4 H (0.6-1.3) mg/dL Estimated GFR (MDRD) 37 L (>89) Glucose 159 H (74-104) mg/dL Calcium 10.2 (8.5-10.3) mg/dL Magnesium (1.7-2.3) mg/dL Total Bilirubin 0.9 (0.2-1.0) mg/dL AST 28 (10-42) IU/L ALT 32 (10-60) IU/L Alkaline Phosphatase 50 (42-121) IU/L Total Protein 7.4 (6.4-8.9) g/dL Albumin 4.5 (3.2-5.5) g/dL Globulin 2.9 (2.1-4.2) g/dL Albumin/Globulin Ratio 1.6 (1.0-2.2) Urine Color Urine Clarity (CLEAR) Urine pH (5.0-7.5) PH Ur Specific [place] (1.002-1.030) Urine Protein (NEGATIVE) mg/dL Urine Glucose (UA) (NEGATIVE) mg/dL Urine Ketones (NEGATIVE) mg/dL Urine Occult Blood (NEGATIVE) Urine Nitrite (NEGATIVE) Urine Bilirubin (NEGATIVE) Urine Urobilinogen (NORMAL) E.U./dL Ur Leukocyte Esterase (NEGATIVE) Urine RBC (0-5) /HPF Urine WBC (0-5) /HPF Ur Squamous Epith Cells (<= Few) Urine Bacteria (None Seen) /HPF Urine Culture Comments CSF Color (COLORLESS) CSF Clarity (CLEAR) Xanthrochromic (ABSENT) CSF WBC (0-5) /mm^3 CSF RBC (0-1) /mm^3 CSF Cell Count Tube # CSF Neutrophils (0-6) % CSF Lymphocytes (40-80) % CSF Monocytes (15-45) % CSF Glucose (45-70) mg/dL CSF Total Protein (15-60) mg/dL Salicylates < 1.5 mg/dL Urine Opiates Screen (NEGATIVE) Ur Buprenorphine Scrn (NEGATIVE) Ur Oxycodone Screen (NEGATIVE) Urine Methadone Screen (NEGATIVE) Acetaminophen 19.5 ug/mL Ur Barbiturates Screen (NEGATIVE) Ur Tricyclics Screen (NEGATIVE) Ur Phencyclidine Scrn (NEGATIVE) Ur Amphetamine Screen (NEGATIVE) U Methamphetamines Scrn (NEGATIVE) U Benzodiazepines Scrn (NEGATIVE) Urine Cocaine Screen (NEGATIVE) U Cannabinoids Screen (NEGATIVE) Ur Drug Screen Comment Ethyl Alcohol < 10.0 mg/dL HIV 1&2 Ab/P24 Ag 4thGn Non Reactive (Non Reactive) ABX Reporting Has patient been on IV antibiotics over the past 48 hours?: Yes Assessment/Plan Problem List (1) Meningitis: Impression: Acute viral meningitis. Headache and neck pain for 3 days prompted ED visit and subsequent admission. She has a history of HSV meningitis. Her CSF results show elevated white blood cell count with 87% lymphocytes which is elevated. She has a normal amount of glucose in her CSF with elevated protein in her CSF. This is indicative of viral meningitis. She has been on IV acyclovir for over 24 hours at this point. She is not worsening. Her symptoms are not gone but they are improving. I will continue to treat her with IV acyclovir. She will need a total of 10 to 14 days of treatment although this does not need to all be IV. She is eating and drinking. I do not need her to be on IV fluids. She had a PCR test which was positive for COVID on 01/31/2024. She completed a course of Paxlovid for this. Her recent COVID infection is not relevant to current circumstances, although she may have residual fatigue. Laboratory Tests 02/09/24 14:15 CSF Color COLORLESS CSF Clarity CLEAR Xanthrochromic ABSENT CSF WBC 1088 H* CSF RBC 3 H CSF Neutrophils 2 CSF Lymphocytes 87 H CSF Monocytes 11 L CSF Glucose 64 CSF Total Protein 163 H I have spoken with the lab. Will be 1 to 2 days before her HSV PCR studies are back. (2) History of asthma: Impression: She has recovered well from her COVID with regards to her asthma. She denies any residual cough she does have some residual fatigue but hard to tell if that is coming from the COVID or the meningitis. She takes an albuterol inhaler 2 puffs 4 times daily as needed as well as a Breo inhaler once a day. Her lungs are clear on examination today she does not show any evidence of asthma exacerbation. I have resumed her home meds of inhaled steroid, albuterol and singulair. (3) Rheumatoid arthritis: Impression: She is currently off of her TNF garrett called Cimzia. This is due to availability as she has been switching primary care providers moving from [place]. She has been on this for some time. She denies any significant joint pain at this time. Otherwise she is on Cymbalta for both depression and chronic pain. She also takes seroquel. Qualifiers: Rheumatoid arthritis location: unspecified site Rheumatoid factor presence: unspecified presence Qualified Code(s): M06.9 - Rheumatoid arthritis, unspecified (4) Hyperlipemia: Impression: continue statin therapy. Qualifiers: Hyperlipidemia type: unspecified Qualified Code(s): E78.5 - Hyperlipidemia, unspecified
[2024-02-10] MEDS: ATORVASTATIN 40 MG TABLET PO SCH (09:02)
[2024-02-10] MEDS: ENOXAPARIN 40 MG/0.4 ML SYRINGE SUBQ SCH (09:03)
[2024-02-10] MEDS: BUDESONIDE 0.5 MG/2 ML NEB INH SCH (12:33)
[2024-02-10] MEDS: FORMOTEROL FUMARATE NEB 20 MCG/2 ML INH SCH (12:33)
--- NOTE | 2024-02-10 13:37 | PHARMACY PROGRESS NOTE ---
Best Possible Medication History Admit Date and Time: 02/09/24 [id number] Processed by: Pharmacy Medications reviewed in ED?: No Medication History completed: Yes Patient Interview: Completed Secondary Source(s): Insurance records [facility] Statement: As the person ultimately responsible for medication therapy, providers are able to order a medication from an existing home medication list in [facility] via the "Reconcile Routine" prior to Confirmation of that medication by product support manager. Such practice is discouraged except when the physician, in their clinical judgment, deems that a medical need exists for a medication without regard to previous use.
--- NOTE | 2024-02-10 17:44 | ADVANCE CARE PLANNING NOTE ---
Advance Care Planning Planning Encounter Date: 02/10/24 Time: 15:00 Purpose: to discuss her status and what her desires are. Parties in Attendance: Sister Alejandra, patient, and Christal Obrien PA-C Decisional Capacity of the Patient: Oriented x 3 with insight into her situation Diagnosis for Encounter (1) Meningitis: (2) History of asthma: (3) Rheumatoid arthritis: Qualifiers: Rheumatoid arthritis location: unspecified site Rheumatoid factor presence: unspecified presence Qualified Code(s): M06.9 - Rheumatoid arthritis, unspecified (4) Hyperlipemia: Qualifiers: Hyperlipidemia type: unspecified Qualified Code(s): E78.5 - Hyperlipidemia, unspecified Encounter Subjective/Patient's Story: Just short of 2 months ago she moved here from the [facility]. She has been a for 9 years and the family of her has essentially abandoned her since she became a . She is very close to her sister. She is 1 of 8 children actually the fourth of 8 children her sister is several years younger than her and she decided to come here and live with her. She loves would be I would but is always wanted to spend the rest of her life here. 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 She is She is happy to be here and be close to her sister who cares about her deeply. Objective/Medical Story: Sima is overall quite well. She has had a diagnosis of rheumatoid arthritis for many years for which she takes a TNF garrett. She has been off this with the most recent dose due to about 3 weeks ago. She is getting set up with a plumbing manager locally and she is due to see her primary care physician on 02/20. With aside from her current meningitis diagnosis she has very few medical problems. She has had asthma for most of her life and this is well-controlled. Goals of Care: She does not want overly invasive measures with regards to her health but should something catastrophic happen she would like a chance at recovery. Plan: She wishes to be full code with full care. She designates her sister Alejandra as her medical decision-maker. Code Status: Attempt Resuscitation Time spent on advance care plannin
[2024-02-10] MEDS: ACYCLOVIR IV SCH (20:36)
[2024-02-10] MEDS: SODIUM CHLORIDE 0.9% IV SCH (20:36)
[2024-02-10 23:33] VITALS: O2SAT 96
[2024-02-11] MEDS ORDERED: SODIUM CHLORIDE 0.9% 0 ML IV ONE (03:33)
[2024-02-11] MEDS: SODIUM CHLORIDE FLUSH 0.9% 10 ML SYRINGE IVP PRN (04:36)
[2024-02-11 05:59] LABS: BASOPHILS # (AUTO) 0.1 10^3/uL (0.0-0.1); BASOPHILS % (AUTO) 0.9 %; EOSINOPHILS # (AUTO) 0.5 10^3/uL (0.0-0.7); EOSINOPHILS % (AUTO) 6.5 %; HCT - HEMATOCRIT 38.2 % (37.0-47.0); HGB - HEMOGLOBIN 11.9 g/dL (12.0-16.0); LYMPHOCYTES # (AUTO) 2.6 10^3/uL (1.5-3.5); LYMPHOCYTES % (AUTO) 34.5 %; MEAN CORPUSCULAR HEMOGLOBIN 30.6 pg (27.0-31.0); MEAN CORPUSCULAR HGB CONC 31.2 g/dL (32.0-36.0); MEAN CORPUSCULAR VOLUME 98.2 fL (81.0-99.0); MEAN PLATELET VOLUME 10.3 fL (7.9-10.8); MONOCYTES # (AUTO) 1.2 10^3/uL (0.0-1.0); MONOCYTES % (AUTO) 16.1 %; NEUTROPHILS # (AUTO) 3.1 10^3/uL (1.5-6.6); NEUTROPHILS % (AUTO) 41.7 %; PLT - PLATELET COUNT 224 10^3/uL (130-450); RED BLOOD COUNT 3.89 10^6/uL (4.20-5.40); RED CELL DISTRIBUTION WIDTH 12.3 % (12.0-15.0); WHITE BLOOD COUNT 7.4 x10^3/uL (4.8-10.8)
[2024-02-11 06:16] LABS: CALCIUM 8.5 mg/dL (8.5-10.3); CREATININE 0.9 mg/dL (0.6-1.3); MAGNESIUM 1.8 mg/dL (1.7-2.3); POTASSIUM 3.6 mmol/L (3.5-4.5)
--- NOTE | 2024-02-11 09:27 | Discharge Summary ---
"Discharge Summary Admit Date: 02/09/24 Discharge Date: 02/11/24 Discharging Provider: Christal Obrien PA-C Primary Care Provider: Starr Manrique PA-C Code Status: Attempt Resuscitation DIAGNOSES Admission Diagnoses: Meningitis Asthma Rheumatoid arthritis Hyperlipidemia Discharge Diagnoses with Status of Each Condition: (1) Meningitis: Impression: Acute viral meningitis. Headache and neck pain for 3 days prompted ED visit and subsequent admission. She has a history of HSV meningitis. Her CSF results show elevated white blood cell count with 87% lymphocytes which is elevated. She has a normal amount of glucose in her CSF with elevated protein in her CSF. This is indicative of viral meningitis. By the morning of hospital day 2 she was eating and drinking and does not need to be on IV fluids. By the morning of hospital day 3 her headache was resolved and she felt back to normal. She was ambulating independently.. She had a PCR test which was positive for COVID on 01/31/2024. She completed a course of Paxlovid for this. Her recent COVID infection is not relevant to current circumstances, although she may have residual fatigue. There is a pending HSV PCR test on her CSF. She had a negative HIV test. 2) History of asthma: Impression: She has recovered well from her COVID with regards to her asthma. She denies any residual cough she does have some residual fatigue but hard to tell if that is coming from the COVID or the meningitis. She takes an albuterol inhaler 2 puffs 4 times daily as needed as well as a Breo inhaler once a day. Her lungs remained clear on exam while admitted. She will resume meds as an outpatient. (3) Rheumatoid arthritis: Impression: She is currently off of her TNF garrett called Cimzia. This is due to availability as she has been switching primary care providers moving from [place]. She has been on this for some time. She denies any significant joint pain at this time. Otherwise she is on Cymbalta for both depression and chronic pain. She also takes seroquel. (4) Hyperlipemia: Impression: continue statin therapy. HPI History of Present Illness: 74-year-old female who presents to the emergency department complaining of a headache and mild confusion for 3 days duration. She has a history of asthma, rheumatoid arthritis and hyperlipidemia. She is also previously had viral meningitis. She had her COVID vaccination on January 26. Then became symptomatic with COVID on the and had a positive antigen test. She received Paxlovid treatment which she completed and then had a negative antigen test on February 04. She had been feeling better for several days but then began to have the above listed symptoms 3 days ago. She has also been feeling hot but is not had a fever. She has a past medical history of asthma rheumatoid arthritis and hyperlipidemia. She sees Starr Manrique at [facility]. She does not have any residual symptomatology from her COVID aside from exhaustion headache and neck ache. 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 She does have a history of shingles she has had the shingles vaccine she also had chickenpox as a child. Several weeks ago she had a bullous lesion on her left second toe which then crusted over and is in the process of healing currently. The toe also became red and swollen at the time of the lesion. It was not otherwise treated CONSULTS | PROCEDURES Consultations: none Procedures: CT and CTA of head and neck. Negative for pathology. HOSPITAL COURSE Hospital Course: Admitted through the ED with headache and confusion. She had an LP with CSF suspicious for viral meningitis. she was treated appropriately with IV acyclovir. She had been taking po acyclovir at home, as she had some of this and had a previous dx of HSV meningitis in the past. Her blood pressure was mildly elevated while here, and I suggested that she start lisinopril. She refused this. She states that she has not tolerated multiple BP meds in the past, and she does not want to take this. I advised her to discuss further with her PCP at followup. She improved rapidly and her headache and neck stiffness had resolved by HD #2. She was discharged to home with her sister Alejandra, with whom she lives. ALLERGIES Allergies Allergy/AdvReac Type Severity Reaction Status Date / Time baclofen Allergy Intermediate Unknown Verified 02/09/24 12:41 MEDICATIONS Ambulatory Orders Medication Instructions Recorded Confirmed albuterol sulfate 90 mcg/actuation 1 - 2 puff IH Q4H PRN Cough ##1 07/06/15 02/09/24 aerosol inhaler (Proventil HFA) fluticasone furoate 200 1 inh inhalation DAILY 07/06/15 02/09/24 mcg-vilanterol 25 mcg/dose inhalation powder (Breo Ellipta) atorvastatin 80 mg tablet 80 mg PO DAILY 02/09/24 02/09/24 duloxetine 60 mg capsule,delayed 60 mg PO DAILY 02/09/24 02/09/24 release gabapentin 300 mg capsule 300 mg PO TID 02/09/24 02/09/24 montelukast 10 mg tablet 10 mg PO QPM 02/09/24 02/09/24 quetiapine 100 mg tablet 150 mg PO HS 02/09/24 02/10/24 buspirone 15 mg tablet 15 mg PO BID 02/10/24 02/10/24 acyclovir 400 mg tablet 400 mg PO TID 12 days #36 tabs 02/11/24 acyclovir 400 mg tablet 400 mg PO TID 12 days #36 tabs 02/11/24 lisinopril 5 mg tablet 10 mg (2 x 5 mg) PO DAILY 02/11/24 hypertension #60 tabs oxycodone 5 mg tablet 5 mg PO Q4HR PRN Pain 5 to 7 #10 02/11/24 tabs PHYSICAL EXAM AT DISCHARGE General Appearance: positive No acute distress Eyes Bilateral: positive Normal inspection ENT: positive ENT inspection nml Neck: positive Nml inspection Respiratory: positive No respiratory distress and Breath sounds nml Cardiovascular: positive Regular rate & rhythm Peripheral Pulses: positive 2+ Abdomen: positive Non-tender Back: positive Nml inspection Skin: positive Color nml and Other (lesion on left 2nd toe is healing) Extremities: positive Non-tender and No pedal edema Neurologic/Psychiatric: positive Oriented x3 LABS 02/11/24 05:49 02/11/24 05:49 FOLLOW UP Follow Up: PCP at [facility]. TIME SPENT Time Spent in Discharge (Minutes): 35 Discharge Plan Discharge Patient Disposition: Home, Self Care Condition: Stable Prescriptions: New lisinopril 5 mg Tablet 10 mg PO DAILY Qty: 60 0RF oxycodone 5 mg Tablet 5 mg PO Q4HR PRN (Reason: Pain 5 to 7) Qty: 10 0RF acyclovir 400 mg tablet 400 mg PO TID 12 Days Qty: 36 0RF acyclovir 400 mg tablet 400 mg PO TID 12 Days Qty: 36 0RF Continued fluticasone furoate-vilanterol [Breo Ellipta] 1 EACH blister with device 1 inh inhalation DAILY albuterol sulfate [Proventil HFA] 6.7 GM HFA aerosol inhaler 1 - 2 puff IH Q4H PRN (Reason: Cough) Qty: 1 0RF quetiapine 100 mg tablet 150 mg PO HS duloxetine 60 mg capsule,delayed release(DR/EC) 60 mg PO DAILY gabapentin 300 mg capsule 300 mg PO TID atorvastatin 80 mg tablet 80 mg PO DAILY montelukast 10 mg tablet 10 mg PO QPM buspirone 15 mg tablet 15 mg PO BID Activity Restrictions: No Restrictions Diet: Regular Health Concerns: You came into the hospital with a headache. You also had been confused for several days. The entire picture was a bit complicated as you had had a recent COVID infection. I think that your admission has actually nothing to do with your recent COVID infection. You had signs of meningitis both on your physical exam and in the fluid that came from your spine. You have a history of meningitis. The fluid testing for HSV remains pending but it is clear that a virus is causing your meningitis infection. Since you have been here in the hospital you have received IV antiviral medication called acyclovir. I would like you to continue to take acyclovir at home. You will take this 3 times a day for 12 days for total of 14 days of therapy. Your headache was relatively severe when you came into the hospital and you required IV medications for this your headache is gotten better but I do not expect it to be all the way gone. For this reason we are treating you with pain medicine. It is okay for you to take [id number]-zwsmjdm Tylenol in addition to the oxycodone that we are prescribing for you. Since you have been here in the hospital your blood pressure has been slightly elevated. I do not think this is completely related to pain. Therefore I am recommending that you start a blood pressure medicine. [facility] other [facility]. This is a medication called an ROMAN inhibitor. It works on your kidneys to help control your blood pressure. There is one side effect that you should be very aware of with ROMAN inhibitors. Sometimes people get swelling of their lips and face called angioedema. This comes on quite suddenly and if it were to happen you should go directly to the emergency room and you should not take additional doses of the medication. Care Plan Goals: Relief of headaches, use Tylenol brms-pil-alkrwec and if that does not work use oxycodone. Make sure to take good care of yourself, eat and drink well. I am starting you on a new blood pressure medicine. I want you to follow-up with your primary care doctor regarding this. Print Language: [place]an Patient Instructions: Meningitis Viral Ch, Meds Blood Pressure Dc, Blood Pressure Dc Follow-up Care: STARR MANRIQUE PA-C [Physician No Access] - 1 Week (Patient sees another provider in practice not loaded into system yet. )"
[2024-02-11] MEDS: lisinopriL 5 MG TABLET PO SCH (10:04)
[2024-02-11] MEDS: busPIRone 5 MG TABLET PO SCH (10:05)
== END 2024-02-11 11:49 | disposition home or self-care (01) | DRG 76 ==
LOC: ED 12:32 → MS2 17:13
PROVIDERS: ADMIT Physician Assistant Medical; ATTEND Specialist
DX: E78.5 Hyperlipidemia, unspecified; Z86.16 Personal history of COVID-19; M06.9 Rheumatoid arthritis, unspecified; R03.0 Elevated blood-pressure reading, without diagnosis of hypertension; G03.9 Meningitis, unspecified; Z11.4 Encounter for screening for human immunodeficiency virus [HIV]; Z87.09 Personal history of other diseases of the respiratory system; R94.31 Abnormal electrocardiogram [ECG] [EKG]; Z11.3 Encounter for screening for infections with a predominantly sexual mode of transmission; Z79.899 Other long term (current) drug therapy; A87.9 Viral meningitis, unspecified

== ENCOUNTER 2024-03-31 09:34 | Inpatient (IN) ==
[2024-03-31 11:06] LABS: BASOPHILS % (AUTO) 0.2 %; EOSINOPHILS # (AUTO) 0.3 10^3/uL (0.0-0.7); EOSINOPHILS % (AUTO) 3.6 %; HCT - HEMATOCRIT 43.5 % (37.0-47.0); HGB - HEMOGLOBIN 13.8 g/dL (12.0-16.0); LYMPHOCYTES % (AUTO) 20.8 %; MEAN CORPUSCULAR HEMOGLOBIN 30.5 pg (27.0-31.0); MEAN CORPUSCULAR HGB CONC 31.7 g/dL (32.0-36.0); MEAN PLATELET VOLUME 10.9 fL (7.9-10.8); MONOCYTES # (AUTO) 1.3 10^3/uL (0.0-1.0); MONOCYTES % (AUTO) 13.3 %; NEUTROPHILS # (AUTO) 5.8 10^3/uL (1.5-6.6); NEUTROPHILS % (AUTO) 61.5 %; PLT - PLATELET COUNT 283 10^3/uL (130-450); RED BLOOD COUNT 4.53 10^6/uL (4.20-5.40); WHITE BLOOD COUNT 9.4 x10^3/uL (4.8-10.8)
[2024-03-31] MEDS: HYDROmorphone 1 MG/ML CARPUJECT IVP STA ×3 (11:09→14:55)
[2024-03-31 11:18] LABS: ALBUMIN 4.4 g/dL (3.2-5.5); ALBUMIN/GLOBULIN RATIO 1.4 (1.0-2.2); BILIRUBIN,TOTAL 0.8 mg/dL (0.2-1.0); CALCIUM 8.9 mg/dL (8.5-10.3); POTASSIUM 3.7 mmol/L (3.5-4.5); TOTAL PROTEIN 7.6 g/dL (6.4-8.9)
[2024-03-31] MEDS ORDERED: iohexoL-300 100 ML VIAL ONE (11:20)
--- NOTE | 2024-03-31 11:53 | CT Report ---
PROCEDURE: CT Head WO INDICATIONS: severe headache TECHNIQUE: Noncontrast 4.5 mm thick angled axial sections acquired from the foramen magnum to the vertex. For r adiation dose reduction, the following was used: automated exposure control, adjustment of mA and/or kV according to patient size. COMPARISON: . FINDINGS: Image quality: Excellent. CSF spaces: Basal cisterns are patent. No extra-axial fluid collections. Ventricles are normal in size and shape. Brain: No midline shift. No intracranial masses or hemorrhage. Huizar-white matter interface is norm al. Skull and face: Calvarium and visualized facial bones are intact, without suspicious lesions. Incid ental note made of hyperostosis frontalis, a common, incidental finding in females of this age. Sinuses: Visualized sinuses and mastoids are clear. IMPRESSION: No acute intracranial pathology. Reviewed by: Janusz Brown MD on 03/31/2024 11:52 AM PST Approved by: Janusz Brown MD on 03/31/2024 11:52 AM PST Station ID: [id number]
--- NOTE | 2024-03-31 11:57 | CT Report ---
PROCEDURE: CT Angio Head/Neck INDICATIONS: sudden headache TECHNIQUE: After the administration of intravenous contrast, 1 mm thick sections acquired from the aortic arch t hrough the [place]. 3-dimensional ubwkqyw-iwgjtccuq-dxayewkisv (MIP) and/or volume renderin g reformats were acquired of the central intracranial vasculature and neck separately. For radiation dose reduction, the following was used: automated exposure control, adjustment of mA and/or kV acco rding to patient size. CONTRAST: omni 300, 80 COMPARISON: CT head from today, CT angiogram of the head and neck dated 02/09/2024 FINDINGS: Image quality: Diagnostic. HEAD CT: CSF Spaces: Basal cisterns are patent. No extra-axial fluid collections. Ventricles are normal in size and shape. Brain: No significant abnormality is seen for scanning technique. Skull and face: Calvarium and visualized facial bones appear intact, without suspicious lesions. Sinuses: Visualized sinuses and mastoids are clear. HEAD CT ANGIOGRAPHY: Anterior circulation: Intracranial internal carotid arteries are normal in size and flow. The flow within the paired anterior cerebral arteries is normal and symmetric. The flow within the middle cer ebral arteries is normal and symmetric. The anterior communicating artery is seen. No aneurysms are seen. Posterior circulation: Normal variant diminutive distal right vertebral artery, potentially indicatin g in PICA. Left vertebral artery is dominant and widely patent. It gives rise to a normal caliber bas ilar artery. No aneurysms are seen. NECK CT ANGIOGRAPHY: Carotid system: The great vessels demonstrate a conventional anatomy as they arise from the aortic a rch. The origins of the common carotid arteries appear patent. The common carotid arteries demonstr ate normal caliber and courses. The bifurcation regions are both widely patent. The internal caroti d arteries demonstrate normal calibers. They are incidentally noted to be deviated medially, sitting in the prevertebral space anterior to the level of C1-C2 through C5-C6. Posterior circulation: Diminutive normal variant appearance of right vertebral artery, possibly indic ating in PICA. Left vertebral artery is dominant and patent, giving rise to a normal caliber basilar artery. Soft tissues: Visualized neck soft tissues demonstrate no suspicious abnormalities. Bones: No suspicious bony lesions. Visualized cervical spine appears normally aligned. IMPRESSION: 1.No significant intracranial arterial abnormality is seen. 2. Incidental note of normal variant diminutive right vertebral artery, likely ending in PICA. 3. Wide patency of the internal carotids. 4. Tortuous cervical carotids deviated medially in the prevertebral space from C1-C2 through C5-C6. The estimate of stenosis included in the report of the imaging study was calculated using the NASCET method Reviewed by: Janusz Brown MD on 03/31/2024 11:56 AM PST Approved by: Janusz Brown MD on 03/31/2024 11:56 AM PST Station ID: [id number]
--- NOTE | 2024-03-31 12:12 | ED Physician Documentation ---
History of Present Illness Stated complaint Stated Complaint: ADAIR, NECK ACHE. BACK PX Chief complaint Chief Complaint: General History obtained from History obtained from: Patient History of Present Illness Timing: Last night Pain level max: 10 Pain level now: 10 Improved by: nothing Worsened by: light, sound, movement Additonal information Additional information: 74-year-old female with a history of recurrent viral meningitis, presents to the emergency department with a sudden onset severe headache and neck pain last night. Feels similar to prior episodes of the viral meningitis. No fevers. No vomiting. Took Tylenol without relief. She states that she usually does not have a fever with her episodes of viral meningitis. Has a history of migraines as well but states that this does not feel like that. The headache is described as holocranial, sharp, constant times 12 hours. No abdominal pain, chest pain, no shortness of breath. No rashes. No back pain. No numbness or tingling. Review of Systems Constitutional Denies: Fatigue, Fever or Chills Eyes Denies: Blurry vision Ears, nose, mouth, and throat Denies: Ear pain Cardiovascular Denies: chest pain or palpitations Respiratory Denies: Cough Gastrointestinal Denies: Abdominal pain or Vomiting Integumentary/Breast Denies: Redness Neurological Denies: General weakness or Focal weakness Endocrine Denies: Fatigue Meds/Allgy Home Medications Ambulatory Orders Medication Instructions Recorded Confirmed albuterol sulfate 90 mcg/actuation 1 - 2 puff IH Q4H PRN Cough ##1 07/06/15 03/31/24 aerosol inhaler (Proventil HFA) fluticasone furoate 200 1 inh inhalation DAILY 07/06/15 03/31/24 mcg-vilanterol 25 mcg/dose inhalation powder (Breo Ellipta) atorvastatin 80 mg tablet 80 mg PO DAILY 02/09/24 03/31/24 duloxetine 60 mg capsule,delayed 60 mg PO QPM 02/09/24 03/31/24 release gabapentin 300 mg capsule 300 mg PO TID 02/09/24 03/31/24 montelukast 10 mg tablet 10 mg PO QPM 02/09/24 03/31/24 quetiapine 100 mg tablet 150 mg PO HS 02/09/24 03/31/24 buspirone 15 mg tablet 15 mg PO BID 02/10/24 03/31/24 lisinopril 5 mg tablet 10 mg (2 x 5 mg) PO DAILY 02/11/24 03/31/24 hypertension #60 tabs albuterol sulfate 90 mcg/actuation 2 inh inhalation Q4H PRN shortness 03/31/24 03/31/24 aerosol inhaler (Ventolin HFA) of breath or wheezing Allergies Allergies Allergy/AdvReac Type Severity Reaction Status Date / Time baclofen Allergy Intermediate Unknown Verified 03/31/24 09:48 [facility] Medical History Medical History (Updated 04/01/24 @ 08:30 by FAUSTO Hartley) History of asthma Rheumatoid arthritis Hyperlipemia Surgical History Surgical History History of carpal tunnel release Family History Family History (Updated 02/09/24 @ 18:02 by FAUSTO Hartley) Mother Leukemia Father Leukemia Social History Social History (Updated 03/31/24 @ 09:48 by Maricarmen Ventura RN) Smoking Status: Never smoker Second hand tobacco smoke exposure: No Do you dip or chew tobacco?: No Do you vape?: No Living arrangement: At home Living Condition: With family and Other (Visiting here from [place] for an indefinite duration.) Support Person: Yes Relationship: Level: Independent Do you feel safe in your home environment?: Yes Suffered physical, verbal, emotional, or financial abuse?: No History of Abuse: No ETOH Use: None Substance Use: denies use POLST Patient has POLST: No Exam Constitutional normal general appearance and no apparent distress HENMT normocephalic, head/scalp atraumatic and oropharynx normal moist mucous membranes Eyes PERRL, EOMs intact bilaterally and conjunctivae normal Neck/C-Spine visual inspection normal pain with movement of the neck in all directions. +kernig and brudzinski signs Respiratory breath sounds equal bilaterally, normal respiratory effort and clear to auscultation bilaterally Cardiovascular normal heart rate noted and regular rhythm noted Gastrointestinal abdomen normal to inspection, abdomen soft to palpation, nontender to palpation and nondistended Genitourinary no CVA tenderness Extremities no deformity no edema Neurology speech normal Psychiatry mental status grossly normal and oriented x3 Skin skin color normal Results Vitals Vitals: Vital Signs - 24 hr 03/31/24 17:32 03/31/24 17:45 03/31/24 18:53 Temperature Temperature Source Pulse Rate Pulse Rate [Apical] Respiratory Rate Blood Pressure [Left Brachial artery] O2 Saturation O2 Source If not protocol: Oxygen Flow, liters/minute Sedation scale Pain Intensity 6 5 7 Pain Intensity [Headache] Pain Intensity [Neck] 03/31/24 18:54 03/31/24 19:40 03/31/24 19:59 Temperature Temperature Source Pulse Rate 82 Pulse Rate [Apical] Respiratory Rate 20 Blood Pressure [Left Brachial artery] O2 Saturation O2 Source Room air If not protocol: Oxygen Flow, liters/minute Sedation scale Pain Intensity 7 Pain Intensity [Headache] 5 Pain Intensity [Neck] 03/31/24 20:03 03/31/24 20:38 03/31/24 21:15 Temperature Temperature Source Pulse Rate Pulse Rate [Apical] Respiratory Rate Blood Pressure [Left Brachial artery] O2 Saturation O2 Source If not protocol: Oxygen Flow, liters/minute Sedation scale Pain Intensity 5 8 7 Pain Intensity [Headache] Pain Intensity [Neck] 03/31/24 21:16 03/31/24 23:04 04/01/24 00:20 Temperature 36.7 C Temperature Source Temporal Artery Scan Pulse Rate Pulse Rate [Apical] 102 H Respiratory Rate 20 Blood Pressure [Left Brachial artery] 119/79 O2 Saturation 90 L O2 Source Room air If not protocol: Oxygen Flow, liters/minute Sedation scale 1-Arouses easily Pain Intensity 7 0 0 Pain Intensity [Headache] Pain Intensity [Neck] 04/01/24 02:10 04/01/24 02:15 04/01/24 03:15 Temperature 37.7 C Temperature Source Temporal Artery Scan Pulse Rate Pulse Rate [Apical] Respiratory Rate 24 20 Blood Pressure [Left Brachial artery] O2 Saturation 85 L 94 96 O2 Source Room air Nasal cannula Nasal cannula If not protocol: Oxygen Flow, liters/minute 2 2 Sedation scale 1-Arouses easily Pain Intensity Pain Intensity [Headache] Pain Intensity [Neck] 04/01/24 03:16 04/01/24 03:18 04/01/24 04:25 Temperature Temperature Source Pulse Rate Pulse Rate [Apical] Respiratory Rate 20 Blood Pressure [Left Brachial artery] O2 Saturation 94 89 L O2 Source Nasal cannula Room air If not protocol: Oxygen Flow, liters/minute 1 1 Sedation scale 0-Fully awake Pain Intensity Pain Intensity [Headache] Pain Intensity [Neck] 04/01/24 04:35 04/01/24 05:37 04/01/24 05:54 Temperature 36.8 C Temperature Source Temporal Artery Scan Pulse Rate Pulse Rate [Apical] 90 Respiratory Rate 24 Blood Pressure [Left Brachial artery] 124/65 O2 Saturation 95 94 O2 Source Nasal cannula Nasal cannula If not protocol: Oxygen Flow, liters/minute 1 1 Sedation scale 0-Fully awake Pain Intensity 7 7 Pain Intensity [Headache] Pain Intensity [Neck] 04/01/24 06:50 04/01/24 06:50 04/01/24 07:29 Temperature Temperature Source Pulse Rate Pulse Rate [Apical] Respiratory Rate Blood Pressure [Left Brachial artery] O2 Saturation O2 Source If not protocol: Oxygen Flow, liters/minute Sedation scale Pain Intensity 9 9 6 Pain Intensity [Headache] Pain Intensity [Neck] 04/01/24 08:00 04/01/24 09:18 04/01/24 09:50 Temperature Temperature Source Pulse Rate Pulse Rate [Apical] Respiratory Rate Blood Pressure [Left Brachial artery] O2 Saturation O2 Source If not protocol: Oxygen Flow, liters/minute Sedation scale Pain Intensity 8 3 Pain Intensity [Headache] 8 Pain Intensity [Neck] 0 04/01/24 10:32 04/01/24 10:36 Temperature 36.5 C Temperature Source Temporal Artery Scan Pulse Rate 86 Pulse Rate [Apical] 78 Respiratory Rate 19 16 Blood Pressure [Left Brachial artery] 138/63 H O2 Saturation 95 O2 Source Room air Room air If not protocol: Oxygen Flow, liters/minute 0 Sedation scale 0-Fully awake Pain Intensity 0 Pain Intensity [Headache] Pain Intensity [Neck] Oxygen O2 Source Room air Labs Labs: Microbiology 03/31/24 13:11 CSF Culture - Preliminary Cerebral Spinal Fluid Laboratory Tests 03/31/24 03/31/24 04/01/24 10:15 13:05 07:45 WBC 9.4 RBC 4.53 Hgb 13.8 Hct 43.5 MCV 96.0 MCH 30.5 MCHC 31.7 L RDW 13.0 Plt Count 283 MPV 10.9 H Neut # (Auto) 5.8 Lymph # (Auto) 2.0 [place] # (Auto) 1.3 H Eos # (Auto) 0.3 Baso # (Auto) 0.0 Absolute Nucleated RBC 0.00 Nucleated RBC % 0.0 Sodium 139 135 Potassium 3.7 3.3 L Chloride 103 102 Carbon Dioxide 28 25 Anion Gap 8.0 8.0 BUN 11 8 Creatinine 1.0 1.0 Estimated GFR (MDRD) 54 L 54 L Glucose 140 H 100 Calcium 8.9 7.9 L Total Bilirubin 0.8 AST 26 ALT 26 Alkaline Phosphatase 66 Total Protein 7.6 Albumin 4.4 Globulin 3.2 Albumin/Globulin Ratio 1.4 CSF Color PINK CSF Clarity HAZY Xanthrochromic ABSENT CSF WBC 65 H* CSF RBC 6100 H CSF Cell Count Tube # CSF TUBE# 3 CSF Neutrophils 10 H CSF Lymphocytes 31 L CSF Monocytes 20 CSF Other Cells 39 CSF Glucose 72 H CSF Total Protein 147 H 04/01/24 11:01 WBC 9.5 RBC 4.17 L Hgb 12.8 Hct 41.1 MCV 98.6 MCH 30.7 MCHC 31.1 L RDW 13.0 Plt Count 221 MPV 10.5 Neut # (Auto) 5.0 Lymph # (Auto) 2.8 [place] # (Auto) 1.3 H Eos # (Auto) 0.3 Baso # (Auto) 0.0 Absolute Nucleated RBC 0.00 Nucleated RBC % 0.0 Sodium Potassium Chloride Carbon Dioxide Anion Gap BUN Creatinine Estimated GFR (MDRD) Glucose Calcium Total Bilirubin AST ALT Alkaline Phosphatase Total Protein Albumin Globulin Albumin/Globulin Ratio CSF Color CSF Clarity Xanthrochromic CSF WBC CSF RBC CSF Cell Count Tube # CSF Neutrophils CSF Lymphocytes CSF Monocytes CSF Other Cells CSF Glucose CSF Total Protein Rads (name of study) head CT: Relevant Findings:: Final report received angio head and neck: Relevant Findings:: Final report received Procedures Lumbar Puncture - Major Position: Laying left side Location: L4-L5 and Midline approach Anesthesia: Local lidocaine CSF: Bloody but clearing Other: Sterile prep and drape, Patient tolerated well and No complications PD Medical Decision Making ED course Complexity details: reviewed old records, reviewed results, re-evaluated patient, considered differential, d/w patient and d/w acquisition consultant ED course: The patient has a severe headache, sudden onset. Feel similar to prior episodes of meningitis, viral. Her lumbar puncture was difficult to obtain, appeared to be a traumatic tap. The red blood cells are clearing. The ratio of red blood cells to white blood cells is approximately 1 to 1000. This may be consistent with a traumatic spinal tap. However, given her history and her recurrent viral, meningitis episodes, will cover with acyclovir and admit for intractable pain. She received several doses of Dilaudid without relief of pain. Discussed the case with the hospitalist who accepts This document was made in part using voice recognition software. While efforts are made to proofread this document, sound alike and grammatical errors may occur. Discharge Plan Discharge Patient Disposition: [facility] DC/Xfer Condition: Stable Clinical Impression: Acute intractable headache Qualifiers: Headache type: unspecified Qualified Code(s): R51.9 - Headache, unspecified Interventions: ED Admission Assessment Last Done: 03/31/24 16:32
[2024-03-31] MEDS: diazePAM INJ 5 MG/ML SYRINGE IVP STA (12:25)
[2024-03-31] MEDS: SODIUM CHLORIDE 0.9% 1,000 ML IV STA (13:11)
[2024-03-31 13:31] LABS: TOTAL PROTEIN,CSF 147 mg/dL (15-60)
[2024-03-31 13:37] LABS: CSF - GLUCOSE 72 mg/dL (45-70)
[2024-03-31 14:01] LABS: CLARITY,CSF HAZY (CLEAR); COLOR,CSF PINK (COLORLESS); CSF TUBE # CSF TUBE# 3; CSF XANTHOCHROMIA ABSENT (ABSENT)
[2024-03-31 14:04] LABS: RED BLOOD CELL,CSF 6100 /mm^3 (0-1)
[2024-03-31 14:08] LABS: WHITE BLOOD CELL,CSF 65 /mm^3 (0-5)
[2024-03-31 14:16] LABS: LYMPHOCYTES,CSF 31 % (40-80)
[2024-03-31 14:20] LABS: MONOCYTES,CSF 20 % (15-45)
[2024-03-31 14:23] LABS: NEUTROPHILS,CSF 10 % (0-6)
[2024-03-31] MEDS: iohexoL-300 100 ML VIAL IVP ONE (14:23)
[2024-03-31 14:24] LABS: OTHER CELLS,CSF 39 %
[2024-03-31] MEDS: ACYCLOVIR INJ 500 MG in SODIUM CHLORIDE 0.9% 250 ML IV STA (14:58)
--- NOTE | 2024-03-31 15:12 | HISTORY & PHYSICAL EXAMINATION ---
Chief Complaint Chief Complaint Chief Complaint: headache History of Present Illness Admitted From Admitted From:: ED History Obtained From Records Reviewed: last admission to History obtained from: Patient and sister, Alejandra Exam Limitations: none History of Present Illness HPI Comment/Other: Presents to the ED with complaints of headache for a bit less than 24 hours. She recently had an asthma exacerbation. Was treated with 7 days of prednisone. Was off this by yesterday and was doing pretty well. It was the first day that she had felt completely normal and about a week. Then yesterday afternoon began to have this headache that encompassed her whole head. She states that her her forehead hurts all the way to the back of her neck. Bending over makes the headache worse she does not have any light sensitivity she does not have any numbness or tingling she has not vomited she does have some nausea she does not have any noise sensitivity. She has not had any visual changes. She states her whole head hurts and her neck feels stiff. 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 At that time she had an LP which was suggestive of viral meningitis and she was treated with acyclovir. At the last time I admitted her I noted a bullous lesion on her left second toe which was crusted over and in the process of healing. This seems to be an exacerbating and remitting problem. She does have some slight erythema to this area today. Meds/Allgy Home Medications Ambulatory Orders Medication Instructions Recorded Confirmed albuterol sulfate 90 mcg/actuation 1 - 2 puff IH Q4H PRN Cough ##1 07/06/15 03/31/24 aerosol inhaler (Proventil HFA) fluticasone furoate 200 1 inh inhalation DAILY 07/06/15 03/31/24 mcg-vilanterol 25 mcg/dose inhalation powder (Breo Ellipta) atorvastatin 80 mg tablet 80 mg PO DAILY 02/09/24 02/09/24 duloxetine 60 mg capsule,delayed 60 mg PO DAILY 02/09/24 03/31/24 release gabapentin 300 mg capsule 300 mg PO TID 02/09/24 03/31/24 montelukast 10 mg tablet 10 mg PO QPM 02/09/24 02/09/24 quetiapine 100 mg tablet 150 mg PO HS 02/09/24 03/31/24 buspirone 15 mg tablet 15 mg PO BID 02/10/24 03/31/24 acyclovir 400 mg tablet 400 mg PO TID 12 days #36 tabs 02/11/24 acyclovir 400 mg tablet 400 mg PO TID 12 days #36 tabs 02/11/24 03/31/24 lisinopril 5 mg tablet 10 mg (2 x 5 mg) PO DAILY 02/11/24 hypertension #60 tabs oxycodone 5 mg tablet 5 mg PO Q4HR PRN Pain 5 to 7 #10 02/11/24 tabs Allergies Allergies Allergy/AdvReac Type Severity Reaction Status Date / Time baclofen Allergy Intermediate Unknown Verified 03/31/24 09:48 [facility] Medical History Medical History (Updated 03/31/24 @ 14:42 by Ashok Morillo MD) History of asthma Rheumatoid arthritis Hyperlipemia Surgical History Surgical History History of carpal tunnel release Family History Family History (Updated 02/09/24 @ 18:02 by FAUSTO Hartley) Mother Leukemia Father Leukemia Social History Social History (Updated 03/31/24 @ 09:48 by Maricarmen Ventura RN) Smoking Status: Never smoker Second hand tobacco smoke exposure: No Do you dip or chew tobacco?: No Do you vape?: No Living arrangement: At home Living Condition: With family and Other (Visiting here from [place] for an indefinite duration.) Support Person: Yes Relationship: Level: Independent Do you feel safe in your home environment?: Yes Suffered physical, verbal, emotional, or financial abuse?: No History of Abuse: No ETOH Use: None Substance Use: denies use POLST Patient has POLST: Yes POLST Status: Full Code Review of Systems Status of ROS: 10 or more systems reviewed and unremarkable except as noted in history and below Constitutional Denies: Fever, Chills or Malaise Eyes Denies: Pain, Floaters, Field loss, Vision loss, Change in vision or Diplopia Ears, nose, mouth, and throat Reports: Neck pain; Denies: Ear pain, Tinnitus, Nasal discharge, Nasal congestion or Vertigo Cardiovascular Denies: Irregular heart rate, chest pain, palpitations, edema or shortness of breath with exertion Respiratory Denies: Shortness of breath, Cough or SOB at rest Gastrointestinal Denies: Abdominal pain Musculoskeletal Reports: Neck pain; Denies: Extremity pain or Muscle weakness Integumentary/Breast Denies: Rash Neurological Reports: Headache (whole head aches, radiates down into her neck); Denies: Vertigo Hematologic/Lymphatic Denies: Anemia Prior Level of Functionality: lives with sister. Exam Constitutional normal general appearance and no apparent distress HENMT normocephalic, head/scalp atraumatic, hearing grossly normal bilaterally, external ears normal, oropharynx normal, dentition normal and gingiva normal Eyes PERRL, conjunctivae normal and visual acuity normal Neck/C-Spine visual inspection normal, trachea midline, cervical spine nontender and meningeal signs noted has pain with neck flexion but able to do so. Lymph no lymphadenopathy noted Chest inspection of chest normal Respiratory breath sounds equal bilaterally, normal respiratory effort and no use of accessory muscles Cardiovascular normal heart rate noted and regular rhythm noted She is very hypertensive, to 220 while I am at bedside. Gastrointestinal abdomen soft to palpation and nondistended Back/Pelvis spine normal to inspection Extremities normal to inspection There is erythema without skin breakdown or edema on the 2nd and 3rd toes on the left. 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 In the ED she has received 2.5 mg of Valium IV, 2.5 mg of Dilaudid IV, and approximately a liter of IV fluids without abatement of her headache. LP was performed by [facility]. Protein was elevated. Glucose was not low. There were 10% neutrophils. This was a bloody tap. There were 65 x 1000 white blood cells. She is She has received initial dose of IV acyclovir in the emergency department. We will continue this. We will treat her headache. CSF cultures are pending. Prior to her leaving the ED I have ordered 1 g of IV Tylenol and 6 mg of sumatriptan subcutaneous. I have ordered IV fluids overnight, despite the national shortage of IV fluids. I will put her on a regular diet. I will prescribe pain control in addition to sumatriptan. Qualifiers: Headache type: unspecified Qualified Code(s): R51.9 - Headache, unspecified (2) Hypertension: Plan: She has a history of hypertension for which she takes 10 mg of lisinopril daily at home. She had been normotensive through much of her emergency department course however just after her LP her blood pressure bonita into the 200s. Her headache was much worse 9-10 out of 10 at the time that her blood pressure was elevated. I am not certain if this was secondary to pain or if she is having more pain due to her elevated blood pressure. In any event I treated her acutely with 10 mg of labetalol. I will place orders for as needed blood pressure management on the chart. I will reorder her home lisinopril. (3) History of asthma: Plan: She recently suffered from an asthma attack and was placed on 7 days of prednisone. Has been off this for several days. Her lungs are clear to auscultation today. I will order her home albuterol as needed. She is also on Singulair for asthma this was restarted as well. (4) Rheumatoid arthritis: Plan: She has been off her TNF garrett (cimzia) since moving here from [place]. does not seem to be having any negative effects from this at this time. Qualifiers: Rheumatoid arthritis location: unspecified site Rheumatoid factor presence: unspecified presence Qualified Code(s): M06.9 - Rheumatoid arthritis, unspecified (5) Hyperlipemia: Plan: Resume home statin Qualifiers: Hyperlipidemia type: unspecified Qualified Code(s): E78.5 - Hyperlipidemia, unspecified Plan I have spent 75 minutes in the care of this patient today. This includes time [id number] and ordering of diagnostic imaging and laboratory studies and consultation with other providers.. Monitoring the patient's signs symptoms, evaluation of medication effectiveness and patient's response to treatment. Lab Results 03/31/24 10:15 03/31/24 10:15
[2024-03-31] MEDS: LABETALOL 20 MG/4 ML SYRINGE IVP STA (15:27)
[2024-03-31] MEDS: ACETAMINOPHEN 1,000 MG/100 ML 1,000 MG/100 ML BAG IV ONE (16:06)
[2024-03-31] MEDS ORDERED: PROCHLORPERAZINE 10 MG/2 ML VIAL IVP PRN (16:35)
[2024-03-31] MEDS ORDERED: ONDANSETRON 4 MG/2 ML VIAL IVP PRN (16:35)
[2024-03-31] MEDS ORDERED: SODIUM CHLORIDE FLUSH 0.9% 10 ML SYRINGE IVP PRN (16:35)
[2024-03-31] MEDS ORDERED: IBUPROFEN 600 MG TABLET PO PRN (16:35)
[2024-03-31] MEDS ORDERED: ALBUTEROL NEB 2.5 MG/3 ML INH PRN (16:43)
[2024-03-31] MEDS: SUMAtriptan 6 MG/0.5 ML VIAL SUBQ STA (16:45)
[2024-03-31] MEDS: HYDROmorphone 0.5 MG/0.5 ML SYRINGE IVP PRN (16:51)
[2024-03-31] MEDS: DEXTROSE 5%-0.45% NACL 1,000 ML IV SCH (16:55)
[2024-03-31] MEDS: ACETAMINOPHEN 1,000 MG/100 ML 1,000 MG/100 ML BAG IV SCH (16:55)
[2024-03-31] MEDS: SODIUM CHLORIDE FLUSH 0.9% 10 ML SYRINGE IVP SCH (16:55)
[2024-03-31] MEDS: oxyCODONE 5 MG TABLET PO PRN (17:45)
[2024-03-31] MEDS: BUDESONIDE 0.5 MG/2 ML NEB INH SCH (19:40)
[2024-03-31] MEDS: FORMOTEROL FUMARATE NEB 20 MCG/2 ML INH SCH (19:40)
[2024-03-31] MEDS: QUEtiapine 100 MG TABLET PO SCH (20:38)
[2024-03-31] MEDS: busPIRone 5 MG TABLET PO SCH (20:38)
[2024-03-31] MEDS: MONTELUKAST 10 MG TABLET PO SCH (20:39)
[2024-03-31] MEDS: HEPARIN 5,000 UNIT/ML VIAL SUBQ SCH (20:39)
[2024-03-31] MEDS: GABAPENTIN 300 MG CAPSULE PO SCH (21:15)
[2024-03-31] MEDS: ACYCLOVIR INJ 800 MG in SODIUM CHLORIDE 0.9% 250 ML IV SCH (21:15)
--- NOTE | 2024-04-01 07:32 | PROVIDER PROGRESS NOTE ---
Subjective Prog Note Date Prog Note Date: 04/01/24 Prog Note Time: 08:15 Subjective Pt reports feeling: Improved Subjective: Her headache is down to a 6/10, but this is with dilaudid IV. she had some hypoxia overnight, and remains on oxygen via nasal cannula this AM, at 1L. no fevers overnight. Current Medications Current Medications Current Medications: Current Medications Generic Name Dose Route Start Last Admin Trade Name Freq PRN Reason Stop Dose Admin Albuterol 2.5 mg 03/31/24 16:43 Albuterol Neb 2.5 Mg/3 Ml INH RTQ4H PRN Wheezing Atorvastatin Calcium 80 mg 04/01/24 09:00 Atorvastatin 40 Mg Tablet PO DAILY SHAR Budesonide 0.5 mg 03/31/24 19:00 03/31/24 19:40 Budesonide 0.5 Mg/2 Ml Neb INH 0.5 mg RTBID SHAR Administration Buspirone HCl 15 mg 03/31/24 21:00 03/31/24 20:38 Buspirone 5 Mg Tablet PO 15 mg BID SHAR Administration Duloxetine HCl 60 mg 04/01/24 21:00 Duloxetine 60 Mg Capsule PO QPM SHAR Formoterol Fumarate 20 mcg 03/31/24 19:00 03/31/24 19:40 Formoterol Fumarate Neb 20 Mcg/2 Ml INH 20 mcg RTBID SHAR Administration Gabapentin 300 mg 03/31/24 22:00 04/01/24 05:39 Gabapentin 300 Mg Capsule PO 300 mg TID SHAR Administration Heparin Sodium (Porcine) 5,000 unit 03/31/24 21:00 03/31/24 20:39 Heparin 5,000 Unit/Ml Vial SUBQ Not Given BID SHAR Hydromorphone HCl 0.5 mg 03/31/24 16:35 04/01/24 06:50 Hydromorphone 0.5 Mg/0.5 Ml Syringe IVP 0.5 mg Q2H PRN Administration Pain 8 to 10 Acetaminophen 1,000 mg in 100 mls @ 400 mls/hr 03/31/24 16:35 04/01/24 01:00 Acetaminophen IV Infused Q8H SHAR Infusion Acyclovir 800 mg/ Sodium 266 mls @ 250 mls/hr 03/31/24 22:00 04/01/24 07:00 Chloride IV Infused TID SHAR Infusion Ibuprofen 600 mg 03/31/24 16:35 Ibuprofen 600 Mg Tablet PO Q6HR PRN Pain 1 to 4 Lisinopril 10 mg 04/01/24 09:00 Lisinopril 5 Mg Tablet PO DAILY SHAR Montelukast Sodium 10 mg 03/31/24 21:00 03/31/24 20:39 Montelukast 10 Mg Tablet PO 10 mg QPM SHAR Administration Ondansetron HCl 4 mg 03/31/24 16:35 Ondansetron 4 Mg/2 Ml Vial IVP Q6HR PRN Nausea / Vomiting Oxycodone HCl 5 mg 03/31/24 16:35 04/01/24 05:54 Oxycodone 5 Mg Tablet PO 5 mg Q4HR PRN Administration Pain 5 to 7 Prochlorperazine Edisylate 10 mg 03/31/24 16:35 Prochlorperazine 10 Mg/2 Ml Vial IVP Q6HR PRN Nausea / Vomiting Quetiapine Fumarate 150 mg 03/31/24 21:00 03/31/24 20:38 Quetiapine 100 Mg Tablet PO 150 mg HS SHAR Administration Sodium Chloride 10 ml 03/31/24 16:35 Sodium Chloride Flush 0.9% 10 Ml Syringe IVP PRN PRN NEEDED PER PROVIDER ORDERS Sodium Chloride 10 ml 03/31/24 17:00 04/01/24 00:36 Sodium Chloride Flush 0.9% 10 Ml Syringe IVP 10 ml 0100,0900,1700 SHAR Administration Objective Vital Signs/Intake & Output Reviewed Vital Signs: Yes Vital Signs: Vital Signs x48h Temp Pulse Resp BP Pulse Ox O2 Flow Rate 04/01/24 05:37 36.8 C 90 24 124/65 94 1 04/01/24 04:35 95 1 04/01/24 04:25 89 L 04/01/24 03:18 1 04/01/24 03:16 20 94 1 04/01/24 03:15 20 96 2 04/01/24 02:15 37.7 C 24 94 2 04/01/24 02:10 85 L 04/01/24 00:20 36.7 C 102 H 20 119/79 90 L Intake & Output: Intake & Output 03/30/24 03/31/24 04/01/24 04/02/24 05:59 05:59 05:59 05:59 Intake Total 2846 / 2846 566 / 566 Balance 2846 / 2846 566 / 566 Weight (kg) 83 kg Objective General Appearance: positive No acute distress and Alert Eyes Bilateral: positive Normal inspection and PERRL ENT: positive ENT inspection nml; negative Dry mucous membranes Neck: positive Nml inspection Respiratory: positive Chest non-tender and Breath sounds nml; negative Wheezes Cardiovascular: positive Regular rate & rhythm Abdomen: positive Non-tender and No distention Back: positive Nml inspection Skin: positive Color nml Extremities: positive Non-tender and Full ROM; negative No pedal edema Neurologic/Psychiatric: positive Oriented x3, CN's nml (2-12) and Mood/affect nml Lab Results 03/31/24 10:15 03/31/24 10:15 Other Labs: Lab Results x24hrs 03/31/24 03/31/24 Range/Units 13:05 10:15 WBC 9.4 (4.8-10.8) x10^3/uL RBC 4.53 (4.20-5.40) 10^6/uL Hgb 13.8 (12.0-16.0) g/dL Hct 43.5 (37.0-47.0) % MCV 96.0 (81.0-99.0) fL MCH 30.5 (27.0-31.0) pg MCHC 31.7 L (32.0-36.0) g/dL RDW 13.0 (12.0-15.0) % Plt Count 283 (130-450) 10^3/uL MPV 10.9 H (7.9-10.8) fL Neut # (Auto) 5.8 (1.5-6.6) 10^3/uL Lymph # (Auto) 2.0 (1.5-3.5) 10^3/uL Cotton # (Auto) 1.3 H (0.0-1.0) 10^3/uL Eos # (Auto) 0.3 (0.0-0.7) 10^3/uL Baso # (Auto) 0.0 (0.0-0.1) 10^3/uL Absolute Nucleated RBC 0.00 x10^3/uL Nucleated RBC % 0.0 /100WBC Sodium 139 (135-145) mmol/L Potassium 3.7 (3.5-4.5) mmol/L Chloride 103 (101-111) mmol/L Carbon Dioxide 28 (21-32) mmol/L Anion Gap 8.0 (6-13) BUN 11 (6-20) mg/dL Creatinine 1.0 (0.6-1.3) mg/dL Estimated GFR (MDRD) 54 L (>89) Glucose 140 H (74-104) mg/dL Calcium 8.9 (8.5-10.3) mg/dL Total Bilirubin 0.8 (0.2-1.0) mg/dL AST 26 (10-42) IU/L ALT 26 (10-60) IU/L Alkaline Phosphatase 66 (42-121) IU/L Total Protein 7.6 (6.4-8.9) g/dL Albumin 4.4 (3.2-5.5) g/dL Globulin 3.2 (2.1-4.2) g/dL Albumin/Globulin Ratio 1.4 (1.0-2.2) CSF Color PINK (COLORLESS) CSF Clarity HAZY (CLEAR) Xanthrochromic ABSENT (ABSENT) CSF WBC 65 H* (0-5) /mm^3 CSF RBC 6100 H (0-1) /mm^3 CSF Cell Count Tube # CSF TUBE# 3 CSF Neutrophils 10 H (0-6) % CSF Lymphocytes 31 L (40-80) % CSF Monocytes 20 (15-45) % CSF Other Cells 39 % CSF Glucose 72 H (45-70) mg/dL CSF Total Protein 147 H (15-60) mg/dL Assessment/Plan Problem List (1) Acute intractable headache: Impression: 04/01: Remains with 6 out of 10 headache this morning. Preliminary Gram stain of CSF shows no organisms and few white blood cells. She has not run a fever overnight she has not had any mental status changes. Her pain levels have improved from a 9-10 out of 10 in the emergency department down to a 6. Unfortunately she developed some hypoxia overnight likely secondary to hypoventilation related to narcotic use. 03/31:I am admitting this patient to observation status for her intractable headache with suspected meningitis. In the ED she received 2.5 mg of Valium IV, 2.5 mg of Dilaudid IV, and approximately a liter of IV fluids without abatement of her headache. LP was performed by ED. Protein was elevated. Glucose was not low. There were 10% neutrophils. This was a bloody tap. There were 65 x 1000 white blood cells. She has received initial dose of IV acyclovir in the emergency department. We will continue this. We will treat her headache. CSF cultures are pending. Prior to her leaving the ED I have ordered 1 g of IV Tylenol and 6 mg of sumatriptan subcutaneous. I have ordered IV fluids overnight, despite the national shortage of IV fluids. I will put her on a regular diet. I will prescribe pain control in addition to sumatriptan. Qualifiers: Headache type: unspecified Qualified Code(s): R51.9 - Headache, unspecified (2) Hypoxia: Impression: overnight required supplemental oxygen up to 2L NC. has history of asthma with occasional exacerbations on albuterol. This AM, her lungs are CTA. She remains on 1L NC and has a sat of 94% CXR shows slightly increased vacular markings. (3) Hypertension: Impression: She has a history of hypertension for which she takes 10 mg of lisinopril daily at home. She had isolated episode of hypertension to the 200s at the end of her emergency department course. This was treated with IV labetalol. Overnight she was normotensive and did not require treatment for her blood pressure. I have resumed her home dosing of lisinopril. Qualifiers: Hypertension type: primary hypertension Qualified Code(s): I10 - Essential (primary) hypertension (4) History of asthma: Impression: She recently suffered from an asthma attack and was placed on 7 days of prednisone. Has been off this for several days. I am treating her asthma while she is here in the hospital with as needed albuterol nebulizers, Pulmicort nebs twice daily, home dosing of Singulair (5) Rheumatoid arthritis: Impression: She has been off her TNF garrett for several months at this point. Her rheumatoid arthritis is not flaring. She is settled with her primary care provider here in town at [facility]. 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 Qualifiers: Rheumatoid arthritis location: unspecified site Rheumatoid factor presence: unspecified presence Qualified Code(s): M06.9 - Rheumatoid arthritis, unspecified (6) Hyperlipemia: Impression: Home statin resumed. Qualifiers: Hyperlipidemia type: unspecified Qualified Code(s): E78.5 - Hyperlipidemia, unspecified
[2024-04-01 08:20] LABS: CALCIUM 7.9 mg/dL (8.5-10.3); POTASSIUM 3.3 mmol/L (3.5-4.5)
[2024-04-01] MEDS ORDERED: SUMAtriptan 25 MG TABLET PO PRN (08:24)
[2024-04-01] MEDS ORDERED: DULoxetine 60 MG CAPSULE PO SCH (09:00)
[2024-04-01] MEDS ORDERED: SODIUM CHLORIDE 0.9% 250 ML IV ONE (09:07)
[2024-04-01] MEDS: lisinopriL 5 MG TABLET PO SCH (09:23)
[2024-04-01] MEDS: ATORVASTATIN 40 MG TABLET PO SCH (09:24)
[2024-04-01] MEDS: POTASSIUM CHLORIDE 20 MEQ TABLET PO ONE (09:39)
--- NOTE | 2024-04-01 09:51 | XRAY Report ---
PROCEDURE: XR Chest 1V INDICATIONS: hypoxia TECHNIQUE: One view of the chest was acquired. COMPARISON: 02/09/2024 FINDINGS: Surgical changes and devices: None. Lungs and pleura: No pleural effusions or pneumothorax. Lungs are clear. Mediastinum: Mediastinal contours appear normal. Heart size is normal. Calcification is seen of th e aortic arch. Bones and chest wall: No suspicious bony lesions. Age-appropriate degenerative changes are seen. O verlying soft tissues appear unremarkable. IMPRESSION: Portable chest within normal limits for age. Reviewed by: Naresh Marquis MD on 04/01/2024 8:49 AM [facility] Approved by: Naresh Marquis MD on 04/01/2024 8:49 AM [facility] Station ID: [id number]
[2024-04-01 11:18] LABS: BASOPHILS % (AUTO) 0.4 %; EOSINOPHILS # (AUTO) 0.3 10^3/uL (0.0-0.7); EOSINOPHILS % (AUTO) 3.5 %; HCT - HEMATOCRIT 41.1 % (37.0-47.0); HGB - HEMOGLOBIN 12.8 g/dL (12.0-16.0); LYMPHOCYTES # (AUTO) 2.8 10^3/uL (1.5-3.5); LYMPHOCYTES % (AUTO) 29.7 %; MEAN CORPUSCULAR HEMOGLOBIN 30.7 pg (27.0-31.0); MEAN CORPUSCULAR HGB CONC 31.1 g/dL (32.0-36.0); MEAN CORPUSCULAR VOLUME 98.6 fL (81.0-99.0); MEAN PLATELET VOLUME 10.5 fL (7.9-10.8); MONOCYTES # (AUTO) 1.3 10^3/uL (0.0-1.0); MONOCYTES % (AUTO) 13.2 %; PLT - PLATELET COUNT 221 10^3/uL (130-450); RED BLOOD COUNT 4.17 10^6/uL (4.20-5.40); WHITE BLOOD COUNT 9.5 x10^3/uL (4.8-10.8)
[2024-04-01] MEDS: KETOROLAC 15 MG/ML VIAL IVP PRN (13:08)
[2024-04-01] MEDS: SUMAtriptan succinate 50 MG TABLET PO PRN (13:09)
[2024-04-01] MEDS: DULoxetine 60 MG CAPSULE PO SCH (20:32)
[2024-04-02 05:59] VITALS: O2SAT 94
[2024-04-02 07:57] LABS: BASOPHILS % (AUTO) 0.3 %; EOSINOPHILS # (AUTO) 0.5 10^3/uL (0.0-0.7); EOSINOPHILS % (AUTO) 5.1 %; HCT - HEMATOCRIT 34.5 % (37.0-47.0); HGB - HEMOGLOBIN 10.8 g/dL (12.0-16.0); LYMPHOCYTES # (AUTO) 1.9 10^3/uL (1.5-3.5); LYMPHOCYTES % (AUTO) 19.9 %; MEAN CORPUSCULAR HEMOGLOBIN 30.7 pg (27.0-31.0); MEAN CORPUSCULAR HGB CONC 31.3 g/dL (32.0-36.0); MEAN PLATELET VOLUME 10.5 fL (7.9-10.8); MONOCYTES % (AUTO) 10.7 %; NEUTROPHILS # (AUTO) 6.2 10^3/uL (1.5-6.6); NEUTROPHILS % (AUTO) 63.8 %; PLT - PLATELET COUNT 195 10^3/uL (130-450); RED BLOOD COUNT 3.52 10^6/uL (4.20-5.40); RED CELL DISTRIBUTION WIDTH 13.1 % (12.0-15.0); WHITE BLOOD COUNT 9.7 x10^3/uL (4.8-10.8)
--- NOTE | 2024-04-02 08:16 | Discharge Summary ---
"Discharge Summary Admit Date: 03/31/24 Discharge Date: 04/02/24 Discharging Provider: Christal Obrien PA-C Primary Care Provider: Starr Manrique PA-C Code Status: Attempt Resuscitation DIAGNOSES Discharge Diagnoses with Status of Each Condition: Acute intractable headache, resolved Hypoxia, resolved Hypertension, chronic and treated. History of asthma, stable, treated. Rheumatoid arthritis chronic, stable. Hyperlipidemia, chronic and treated. HPI History of Present Illness: Presents to the ED with complaints of headache for a bit less than 24 hours. She recently had an asthma exacerbation. Was treated with 7 days of prednisone. Was off this by yesterday and was doing pretty well. It was the first day that she had felt completely normal and about a week. Then yesterday afternoon began to have this headache that encompassed her whole head. She states that her her forehead hurts all the way to the back of her neck. Bending over makes the headache worse she does not have any light sensitivity she does not have any numbness or tingling she has not vomited she does have some nausea she does not have any noise sensitivity. She has not had any visual changes. She states her whole head hurts and her neck feels stiff. 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 At that time she had an LP which was suggestive of viral meningitis and she was treated with acyclovir. At the last time I admitted her I noted a bullous lesion on her left second toe which was crusted over and in the process of healing. This seems to be an exacerbating and remitting problem. She does have some slight erythema to this area today. CONSULTS | PROCEDURES Procedures: Head CT: No acute intracranial pathology CTA of the head and neck no intracranial abnormality Incidental note of normal variant diminutive right vertebral artery Wide patency of the internal carotids Torturous cervical carotids HOSPITAL COURSE Hospital Course: (1) Acute intractable headache: Impression: 04/02: headache resolved late yesterday, has not required meds overnight. Vital signs normal, feels good, wants to go home. 04/01: Remains with 6 out of 10 headache this morning. Preliminary Gram stain of CSF shows no organisms and few white blood cells. She has not run a fever overnight she has not had any mental status changes. Her pain levels have improved from a 9-10 out of 10 in the emergency department down to a 6. Unfortunately she developed some hypoxia overnight likely secondary to hypoventilation related to narcotic use. 03/31:I am admitting this patient to observation status for her intractable headache with suspected meningitis. In the ED she received 2.5 mg of Valium IV, 2.5 mg of Dilaudid IV, and approximately a liter of IV fluids without abatement of her headache. LP was performed by [facility]. Protein was elevated. Glucose was not low. There were 10% neutrophils. This was a bloody tap. There were 65 x 1000 white blood cells. She has received initial dose of IV acyclovir in the emergency department. We will continue this. We will treat her headache. CSF cultures are pending. Prior to her leaving the ED I have ordered 1 g of IV Tylenol and 6 mg of sumatriptan subcutaneous. I have ordered IV fluids overnight, despite the national shortage of IV fluids. I will put her on a regular diet. I will prescribe pain control in addition to sumatriptan. Qualifiers: Headache type: unspecified Qualified Code(s): R51.9 - Headache, unspecified (2) Hypoxia: Impression: CXR read as normal for age. required supplemental O2 while on narcotics, quickly resolved off narcotics. (3) Hypertension: Impression: She has a history of hypertension for which she takes 10 mg of lisinopril daily at home. She had isolated episode of hypertension to the 200s at the end of her emergency department course. This was treated with IV labetalol. She quickly became normotensive with resumption of home meds. I have resumed her home dosing of lisinopril. BP acceptable for age. Selected Entries 04/01/24 13:00 04/01/24 15:38 04/02/24 00:29 Blood Pressure [Left Brachial artery] 117/60 121/56 L Blood Pressure [Right Brachial artery] 107/56 L 04/02/24 05:53 Blood Pressure [Left Brachial artery] 141/67 H Blood Pressure [Right Brachial artery] Qualifiers: Hypertension type: primary hypertension Qualified Code(s): I10 - Essential (primary) hypertension (4) History of asthma: Impression: She recently suffered from an asthma attack and was placed on 7 days of prednisone. Has been off this for several days. Home asthma regimen resumed. (5) Rheumatoid arthritis: Impression: She has been off her TNF garrett for several months at this point. Her rheumatoid arthritis is not flaring. She is settled with her primary care provider here in town at [facility]. 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 Qualifiers: Rheumatoid arthritis location: unspecified site Rheumatoid factor presence: unspecified presence Qualified Code(s): M06.9 - Rheumatoid arthritis, unspecified (6) Hyperlipemia: Impression: Home statin resumed. Qualifiers: Hyperlipidemia type: unspecified Qualified Code(s): E78.5 - Hyperlipidemia, unspecified ALLERGIES Allergies Allergy/AdvReac Type Severity Reaction Status Date / Time baclofen Allergy Intermediate Unknown Verified 03/31/24 09:48 MEDICATIONS Ambulatory Orders Medication Instructions Recorded Confirmed albuterol sulfate 90 mcg/actuation 1 - 2 puff IH Q4H PRN Cough ##1 07/06/15 03/31/24 aerosol inhaler (Proventil HFA) fluticasone furoate 200 1 inh inhalation DAILY 07/06/15 03/31/24 mcg-vilanterol 25 mcg/dose inhalation powder (Breo Ellipta) atorvastatin 80 mg tablet 80 mg PO DAILY 02/09/24 03/31/24 duloxetine 60 mg capsule,delayed 60 mg PO QPM 02/09/24 03/31/24 release gabapentin 300 mg capsule 300 mg PO TID 02/09/24 03/31/24 montelukast 10 mg tablet 10 mg PO QPM 02/09/24 03/31/24 quetiapine 100 mg tablet 150 mg PO HS 02/09/24 03/31/24 buspirone 15 mg tablet 15 mg PO BID 02/10/24 03/31/24 lisinopril 5 mg tablet 10 mg (2 x 5 mg) PO DAILY 02/11/24 03/31/24 hypertension #60 tabs albuterol sulfate 90 mcg/actuation 2 inh inhalation Q4H PRN shortness 03/31/24 03/31/24 aerosol inhaler (Ventolin HFA) of breath or wheezing acyclovir 800 mg tablet 800 mg PO TID #21 tabs 04/02/24 sumatriptan succinate 50 mg tablet 100 mg (2 x 50 mg) PO DAILY PRN 04/02/24 Headache #8 tabs PHYSICAL EXAM AT DISCHARGE General Appearance: positive No acute distress and Alert Eyes Bilateral: positive Normal inspection ENT: positive ENT inspection nml Neck: positive Nml inspection Respiratory: positive No respiratory distress and Breath sounds nml Cardiovascular: positive Regular rate & rhythm Abdomen: positive No distention Back: positive Nml inspection Skin: positive Color nml and Other (remains with erythma and no warmth or swelling on 2nd and 3rd toes left foot. unchanged. ) Extremities: positive Non-tender and No pedal edema LABS 04/02/24 07:51 04/02/24 07:51 DIAGNOSTIC IMAGING Diagnostic Imaging Results Comments: awaiting CSF cultures. gram stain not remarkable. FOLLOW UP Follow Up: PCP 7-10 d TIME SPENT Time Spent in Discharge (Minutes): 35 Discharge Plan Discharge Patient Disposition: Home, Self Care Condition: Stable Prescriptions: New acyclovir 800 mg tablet 800 mg PO TID Qty: 21 0RF sumatriptan succinate 50 mg Tablet 100 mg PO DAILY PRN (Reason: Headache) Qty: 8 1RF Rx Instructions: one dose as needed at onset of headache, may repeat once in 2 hours. Continued fluticasone furoate-vilanterol [Breo Ellipta] 1 EACH blister with device 1 inh inhalation DAILY albuterol sulfate [Proventil HFA] 6.7 GM HFA aerosol inhaler 1 - 2 puff IH Q4H PRN (Reason: Cough) Qty: 1 0RF quetiapine 100 mg tablet 150 mg PO HS duloxetine 60 mg capsule,delayed release(DR/EC) 60 mg PO QPM gabapentin 300 mg capsule 300 mg PO TID atorvastatin 80 mg tablet 80 mg PO DAILY montelukast 10 mg tablet 10 mg PO QPM buspirone 15 mg tablet 15 mg PO BID lisinopril 5 mg Tablet 10 mg PO DAILY Qty: 60 0RF albuterol sulfate [Ventolin HFA] 90 mcg/actuation HFA aerosol inhaler 2 inh inhalation Q4H PRN (Reason: shortness of breath or wheezing) Activity Restrictions: Activity as Tolerated Diet: Regular Health Concerns: You came into the hospital with a severe headache. Your blood pressure was also elevated but I am not certain that is related to your headache. Treatment with multiple medications finally resolved your headache. 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 I have sent acyclovir to the pharmacy. Additionally I have sent some medication called sumatriptan for headaches. You can take this at the onset of headache. Do not take more than 2 doses within 24 hours. You had some low oxygen, but this resolved as soon as we stopped giving you pain medications. I think this is related to pain medications and not breathing well. I do not think this is related to your asthma. Continue all of your home medications. Follow-up with your primary care doctor in a week to 10 days. Print Language: Gabonese Follow-up Care: STARR MANRIQUE PA-C [Physician No Access] -"
[2024-04-02 08:37] LABS: CALCIUM 7.9 mg/dL (8.5-10.3); CREATININE 0.8 mg/dL (0.6-1.3); POTASSIUM 4.1 mmol/L (3.5-4.5)
== END 2024-04-02 08:55 | disposition home or self-care (01) | DRG 102 ==
LOC: ED 09:34 → MS2 09:34
PROVIDERS: ADMIT Physician Assistant Medical; ATTEND Physician Assistant Medical
DX: R09.02 Hypoxemia; B00.3 Herpesviral meningitis; I10 Essential (primary) hypertension; E78.5 Hyperlipidemia, unspecified; M06.9 Rheumatoid arthritis, unspecified; R51.9 Headache, unspecified; L53.9 Erythematous condition, unspecified; J45.909 Unspecified asthma, uncomplicated